=== PATIENT | female | born 1950 | race American Indian/Alaskan Native ===

== ENCOUNTER 2017-08-14 15:46 | Inpatient (IN) | payer OTHER, MEDICARE ==
[2017-08-14 15:47] VITALS: BMI 36.6
--- NOTE | 2017-08-14 17:23 | C.PDOC ---
History Of Present Illness LIMITED DUE TO CLIN COND REFERRED BY DR BIRD FOR EVAL. NEW ONSET AMS, POSSIBLE ONSET 2-3 WEEKS AGO. PER DAUGHTER, PT CALLED OUT FROM [employer], HAS NOT BEEN MOVING CAR ON STREET AND ACCUMULATING PARKING TICKETS, +MEMORY LOSS. "SEEMS OUT OF IT". DAUGHTER STATES SAW COCAINE ARTIFACTS IN PT'S HOUSE, NO WITNESSED RECENT COCAINE USE X 6 DAYS. BASELINE AO3, FUNCTIONAL. ROS UTO EXAM NAD NONTOXIC HEENT ATRAUM LUNGS CT AB/L NO W/R/R CV RRR ABD NEG EXT ATRAUM NO EDEMA NEURO AO2, NO FOCAL MOTOR DEF PSYCH CALM COOPERATIVE NO ACUTE PSYCHOSIS, INTOX SKIN WARM DRY REMAINDER NEG Time Seen by Provider: 08/14/17 17:12 Chief Complaint (Nursing): Altered Mental Status History/Exam Limitations: Clinical Condition Past Medical History Reviewed: Historical Data, Nursing Documentation, Vital Signs Vital Signs: Last Vital Signs Temp 97.8 F 08/14/17 16:03 Pulse 56 L 08/14/17 16:03 Resp 18 08/14/17 16:03 BP 142/91 H 08/14/17 16:03 Pulse Ox 99 08/14/17 18:20 - Medical History PMH: Arthritis, Diabetes, HTN, TIA (2 yrs ago) Denies: Chronic Kidney Disease Surgical History: No Surg Hx - [facility] Procedures CATARAC PHACOEMULS/ASPIR (04/23/14) INSERT LENS AT CATAR EXT (04/23/14) Family History: States: No Known Family Hx, Unknown Family Hx - Social History Hx Tobacco Use: No Hx Alcohol Use: No Hx Substance Use: No - Immunization History Hx Tetanus Toxoid Vaccination: No Hx Influenza Vaccination: No Hx Pneumococcal Vaccination: No Review Of Systems Review Of Systems: ROS cannot be obtained secondary to pt's inabilty to answer questions. Physical Exam - Physical Exam Appears: Non-toxic, No Acute Distress Skin: Warm, Dry Head: Atraumatic Eye(s): bilateral: Normal Inspection Oral Mucosa: Moist Neck: Normal ROM, Supple Chest: Symmetrical Cardiovascular: Rhythm Regular Respiratory: Normal Breath Sounds, No Rales, No Rhonchi, No Wheezing Gastrointestinal/Abdominal: Normal Exam, Soft, No Tenderness Back: Normal Inspection Extremity: Normal ROM, No Pedal Edema, No Deformity Neurological/Psych: Other (Alert, oriented x 2. No focal defecits. Calm, cooperative, no acute psychosis or intoxication) ED Course And Treatment - Laboratory Results Result Diagrams: 08/14/17 17:44 08/14/17 17:44 ECG: Interpreted By Me ECG Rhythm: Sinus Rhythm ECG Interpretation: Normal Rate From EC O2 Sat by Pulse Oximetry: 99 (RA) Pulse Ox Interpretation: Normal Progress - Re-Evaluation Re-evaluation Note: 08/14/17 17:35 D/W DR Doug BARTON C/F PMD, AWARE OF ER FINDINGS WILL ADMIT. LABS, CT PENDING - Data Reviewed Data Reviewed: Lab, Diagnostic imaging, EKG, Old records - Critical Care Citical Care: Excluding Proc Time Critical Care Time: 90 minutes Disposition Counseled Patient/Family Regarding: Studies Performed, Diagnosis - Disposition Disposition: HOSPITALIZED Disposition Time: 18:43 Condition: STABLE Forms: [facility] (Estonian) - POA Present On Arrival: None - Clinical Impression Clinical Impression: Altered mental status, UTI (urinary tract infection) - Scribe Statement The provider has reviewed the documentation as recorded by the Scribe (Nicole Candelaria) Provider Attestation: All medical record entries made by the Scribe were at my direction and personally dictated by me. I have reviewed the chart and agree that the record accurately reflects my personal performance of the history, physical exam, medical decision making, and the department course for this patient. I have also personally directed, reviewed, and agree with the discharge instructions and disposition. Decision To Admit - Pt Status Changed To: Hospital Disposition Of: Inpatient - Admit Certification Admit to Inpatient:: After my assessment, the patient will require hospitalization for at least two midnights. This is because of the severity of symptoms shown, intensity of services needed, and/or the medical risk in this patient being treated as an outpatient. - InPatient: Physician Admission Certification:: SEE NOTE - . Bed Request Type: Regular Admitting Physician: Gregorio Barton Patient Diagnosis: Altered mental status, UTI (urinary tract infection)
--- NOTE | 2017-08-14 17:32 | RAD ---
PROCEDURE: CHEST RADIOGRAPH, 1 VIEW HISTORY: AMS COMPARISON: 05/13/2014. FINDINGS: LUNGS: The lungs are well inflated and clear. PLEURA: No pneumothorax or pleural fluid seen. CARDIOVASCULAR: Normal. OSSEOUS STRUCTURES: No significant abnormalities. VISUALIZED UPPER ABDOMEN: Normal. OTHER FINDINGS: None. IMPRESSION: No active pulmonary disease.
[2017-08-14 17:48] LABS: EOS # 0.1 K/uL (0.0-0.7); EOS % 1.5 % (0.0-4.0); HEMOGLOBIN 12.3 g/dL (11.0-16.0); LYMPH # 2.3 K/uL (1.0-4.3); LYMPH % 49.8 % (20.0-40.0); MEAN CELL VOLUME 82.4 fL (81.0-99.0); MEAN CORPUSCULAR HEMOGLOBIN 27.4 pg (27.0-31.0); MEAN CORPUSCULAR HGB CONC 33.3 g/dL (33.0-37.0); MEAN PLATELET VOLUME 9.3 fL (7.2-11.7); MONO # 0.4 K/uL (0.0-0.8); MONO % 8.4 % (0.0-10.0); NEUT # 1.8 K/uL (1.8-7.0); NEUT % 39.3 % (50.0-75.0); RBC 4.47 Mil/uL (3.80-5.20); WHITE BLOOD COUNT 4.7 K/uL (4.8-10.8)
[2017-08-14 17:51] LABS: VENOUS BLOOD GAS BASE EXCESS 0.9 mmol/L (0.0-2.0); VENOUS BLOOD GAS PCO2 64 mmHg (40-60); VENOUS BLOOD GAS PO2 21 mm/Hg (30-55); VENOUS BLOOD PH 7.27 (7.32-7.43)
[2017-08-14 18:02] LABS: ALBUMIN 4.1 g/dL (3.5-5.0); CALCIUM 10.1 mg/dl (8.6-10.4); GFR AFRICAN-AMERICAN 39; GFR NON-AFRICAN AMERICAN 32; HDL CHOLESTEROL 36 mg/dL (30-70)
[2017-08-14 18:07] LABS: INR 1.1; PROTHROMBIN TIME 11.5 SECONDS (9.7-12.2)
[2017-08-14 18:08] LABS: ALT/SGPT 21 U/L (9-52); AST/SGOT 20 U/L (14-36); BLOOD UREA NITROGEN 28 mg/dL (7-17)
[2017-08-14 18:13] LABS: CK-MB 0.24 ng/mL (0.0-3.38); LDL CHOLESTEROL 152 mg/dL (0-129)
[2017-08-14 18:14] LABS: SQUAMOUS EPITHIAL 6 /hpf (0-5); URINE BACTERIA FEW (<OCC); URINE BILIRUBIN NEGATIVE (NEGATIVE); URINE BLOOD 1+ (NEGATIVE); URINE CLARITY Hazy (Clear); URINE COLOR Yellow (YELLOW); URINE GLUCOSE (UA) NORMAL (Normal); URINE LEUKOCYTE ESTERASE 2+ Leu/uL (Negative); URINE PROTEIN 1+ mg/dL (NEGATIVE); URINE URIC ACID CRYSTALS OCC /hpf (<OCC)
[2017-08-14] MEDS ORDERED: cefTRIAXone IV 1 gm in Dextros 50 ML IV STA (18:16)
--- NOTE | 2017-08-14 18:34 | CT ---
PROCEDURE: CT HEAD WITHOUT CONTRAST. HISTORY: AMS COMPARISON: 05/13/2014 TECHNIQUE: Axial computed tomography images were obtained through the head/brain without intravenous contrast. Radiation dose: Total exam DLP = 773.90 mGy-cm. This CT exam was performed using one or more of the following dose reduction techniques: Automated exposure control, adjustment of the mA and/or kV according to patient size, and/or use of iterative reconstruction technique. FINDINGS: HEMORRHAGE: No intracranial hemorrhage. BRAIN: There are moderate chronic microangiopathic changes. There are old lacunar infarctions in the right posterior limb of internal capsule, right thalamus and left basal ganglia. There is no mass, mass effect or abnormal extra-axial fluid collection. VENTRICLES: There is moderate age-related global parenchymal volume loss and proportionate enlargement of the ventricles and cortical sulci. CALVARIUM: There is mild hyperostosis frontalis interna. Otherwise, the skull base and calvarium are normal. PARANASAL SINUSES: Predominantly clear. MASTOID AIR CELLS: Predominantly clear. OTHER FINDINGS: None. IMPRESSION: No acute intracranial abnormality. Moderate chronic microangiopathic changes and moderate age-related global parenchymal volume loss. Old lacunar infarctions in the right posterior limb of internal capsule, right thalamus and left basal ganglia.
[2017-08-14 18:35] LABS: BARBITURATES, UR NEGATIVE (NEGATIVE); BENZODIAZEPINES, UR NEGATIVE (NEGATIVE); OPIATES, UR NEGATIVE (NEGATIVE); PHENCYCLIDINE, UR NEGATIVE (NEGATIVE)
[2017-08-14] MEDS ORDERED: cefTRIAXone IV 1 gm in Dextros 50 ML IVPB ONE (18:50)
[2017-08-14 22:43] LABS: FREE T4 1.03 ng/dL (0.78-2.19)
--- NOTE | 2017-08-15 02:58 | HP ---
HISTORY OF PRESENT ILLNESS: This is a 66-year-old female who came to the emergency room. The patient has history of recent onset of altered mental status, possibly for the last 2 to 3 weeks. As per daughter, the patient called her many times. Also has not been moving car on the street and getting parking tickets. History of memory loss. The patient seems out of it. Daughter states she saw cocaine artifacts in patient's house. No witnessed recent cocaine use for the last 6 days. No history of fever, chills. REVIEW OF SYSTEMS: Cannot be obtained completely because of patient's mental condition. PAST HISTORY: History of arthritis, diabetes, hypertension, and TIA. No history of chronic renal failure. MEDICATIONS: Metformin. ALLERGIES: NO KNOWN ALLERGIES. FAMILY HISTORY: No known inherited disease. SOCIAL HISTORY: No alcohol or tobacco use. PHYSICAL EXAMINATION: GENERAL: This is a 66-year-old female, awake, comfortable, oriented x2. VITAL SIGNS: Normal. HEENT: Normal. JVP is flat. Carotids, no bruits. LUNGS: No rales, no wheezing. HEART: S1 and S2 normal. No gallop, no murmur. ABDOMEN: Soft, nontender. No organomegaly. TREATER: No focal neurological deficit. EXTREMITIES: No edema of the legs. NEURO: Altered mental status present. LABORATORY DATA: On admission, lab work showed white cell count 4.7, hemoglobin 12.3, potassium is 5.3, BUN 28, and creatinine 1.6. EKG is within normal limits. Chest x-ray is within normal limits. IMPRESSION: Altered mental status. Renal insufficiency. Rule out urinary tract infection. PLAN: The patient will be admitted to the floor. We will get neurological and infectious disease evaluation done. Gregorio Moulton MD
[2017-08-15] MEDS ORDERED: Sod Polystyrene Sulf 15 gm/60 ml Susp PO STA (11:33)
--- NOTE | 2017-08-15 13:19 | CP.PCM.PN ---
Subjective - Date & Time of Evaluation Date of Evaluation: 08/15/17 Time of Evaluation: 13:17 - Subjective Subjective: PT AWAKE . COMFORTABLE. BP HIGH. NO HEADACHE. DISCUSSED WITH DAUGHTER, PT APPEARS SLIGHTLY BETTER. HYPERKALEMIA. CRF. HTN DM. S/P LACUNAR INFARCTS. Objective - Vital Signs/Intake and Output Vital Signs (last 24 hours): Temp Pulse Resp BP Pulse Ox 97.9 F 50 L 20 172/92 H 100 08/15/17 07:35 08/15/17 07:35 08/15/17 07:35 08/15/17 07:35 08/15/17 07:35 Intake and Output: 08/15/17 08/15/17 06:59 18:59 Intake Total 100 Balance 100 - Medications Medications: Current Medications Amlodipine Besylate (Norvasc) 5 mg PO DAILY [facility] Last Admin: 08/15/17 11:28 Dose: Not Given Aspirin (Aspirin Chewable) 81 mg PO DAILY [facility] Last Admin: 08/15/17 10:47 Dose: 81 mg Losartan Potassium (Cozaar) 50 mg PO DAILY [facility] Last Admin: 08/15/17 11:47 Dose: 50 mg Metformin HCl (Glucophage) 500 mg PO BID [facility] Pneumococcal Polyvalent Vaccine (Pneumovax 23 Vaccine) 0.5 ml IM .ONCE ONE Stop: 08/17/17 14:01 - Labs Labs: 08/14/17 17:44 08/14/17 17:44 PT 11.5 SECONDS (9.7-12.2) 08/14/17 17:44 INR 1.1 08/14/17 17:44 APTT 35 SECONDS (21-34) H 08/14/17 17:44 - Constitutional Appears: No Acute Distress, Chronically Ill - Eye Exam Eye Exam: EOMI, Normal appearance, PERRL Pupil Exam: NORMAL ACCOMODATION, PERRL - ENT Exam ENT Exam: Mucous Membranes Moist, Normal Exam - Neck Exam Neck Exam: Full ROM, Normal Inspection. absent: Lymphadenopathy - Respiratory Exam Respiratory Exam: Clear to Ausculation Bilateral, NORMAL BREATHING PATTERN - Cardiovascular Exam Cardiovascular Exam: REGULAR RHYTHM, +S1, +S2. absent: Murmur - GI/Abdominal Exam GI & Abdominal Exam: Soft, Normal Bowel Sounds. absent: Tenderness - Extremities Exam Extremities Exam: Full ROM, Normal Capillary Refill, Normal Inspection. absent : Joint Swelling, Pedal Edema - Back Exam Back Exam: NORMAL INSPECTION - Neurological Exam Neurological Exam: Alert, Awake, CN II-XII Intact, Normal Gait, Oriented x3 Assessment and Plan - Assessment and Plan (Free Text) Assessment: ABOVE. Plan: NEEDS NEURO EVAL. ECHO. LABS.
--- NOTE | 2017-08-15 14:35 | CARD ---
APPROVED REPORT EKG Measurement Heart [id number] <Conclusion> Sinus bradycardia Otherwise normal ECG
--- NOTE | 2017-08-15 15:50 | CP.PCM.CON ---
History of Present Illness - History of Present Illness History of Present Illness: 66 yo female with hx HTN DM CVA CKD found altered at home with drug paraphanelia and cocaine hasnt worked in 3 weeks severely altered Now with possible new CVA and UTI r/o sepsis Review of Systems - Review of Systems All systems: reviewed and no additional remarkable complaints except - Constitutional Constitutional: As Per HPI - EENT Eyes: absent: As Per HPI, Blind Spots, Blurred Vision, Change in Vision, Decreased Night Vision, Diplopia, Discharge, Dry Eye, Exophthalmos, Floaters, Irritation, Itchy Eyes, Loss of Peripheral Vision, Pain, Photophobia, Requires Corrective Lenses, Sees Flashes, Spots in Vision, Tunnel Vision, Other Visual Disturbances, Loss of Vision, Other Ears: absent: As Per HPI, Decreased Hearing, Ear Discharge, Ear Pain, Tinnitus, Abnormal Hearing, Disequilibrium, Dizziness, Other Nose/Mouth/Throat: absent: As Per HPI, Epistaxis, Nasal Congestion, Nasal Discharge, Nasal Obstruction, Nasal Trauma, Nose Pain, Post Nasal Drip, Sinus Pain, Sinus Pressure, Bleeding Gums, Change in Voice, Dental Pain, Dry Mouth, Dysphagia, Halitosis, Hoarsness, Lip Swelling, Mouth Lesions, Mouth Pain, Odynophagia, Sore Throat, Throat Swelling, Tongue Swelling, Facial Pain, Neck Pain, Neck Mass, Other - Breasts Breasts: absent: As Per HPI, Change in Shape, Mass, Pain, Nipple Discharge, Nipple Inversion, Skin Changes, Swelling, Other - Cardiovascular Cardiovascular: As Per HPI - Respiratory Respiratory: absent: As Per HPI, Cough, Dyspnea, Hemoptysis, Dyspnea on Exertion , Wheezing, Snoring, Stridor, Pain on Inspiration, Chest Congestion, Excessive Mucous Production, Change in Mucous Color, Pain with Coughing, Other - Gastrointestinal Gastrointestinal: absent: As Per HPI, Abdominal Pain, Belching, Bloating, Change in Bowel Habits, Change in Stool Character, Coffee Ground Emesis, Constipation, Cramping, Diarrhea, Dyspepsia, Dysphagia, Early Satiety, Excessive Flatus, Fecal Incontinence, Heartburn, Hematemesis, Hematochezia, Loose Stools, Melena, Nausea, Odynophagia, Temesmus, Vomiting, Other - Genitourinary Genitourinary: absent: As Per HPI, Change in Urinary Stream, Difficulty Urinating, Dysuria, Flank Pain, Hematuria, Pyuria, Nocturia, Urinary Incontinence, Urinary Frequency, Urinary Hesitance, Urinary Urgency, Voiding Freq/Small Amts, Freq UTI, Hx Renal/Bladder Calculi, Hx /Renal Surgery, Bladder Distension, Other - Reproductive: Female Reproductive:Female: absent: As Per HPI, Amenorrhea, Amenorrhea/ Control, Currently Menstual, Cycle <21 Days, Cycle >35 Days, Cycle Variable, Menses 1-7 Days, Menses >/= 8 Days, Menses Variable, Cycle > 4 Weeks Between, No Menses for 6 Months, Heavy Menses, Light Menses, Normal Menses, Spotting Between Cycles , S/P Hysterectomy, Menopausal, Post Menopausal, Premenarche, Abnormal Vaginal Bleeding, Dysmenorrhea, Dyspareunia, Genital Lesions, Genital Pruritis, Pelvic Pain, Prolapse Symptoms, Sexual Dysfunction, Vaginal Discharge, Vaginal Dryness , Vaginal Odor, Vaginal Pruritis, Other - Menstruation Menstruation: absent: As Per HPI, Amenorrhea, Amenorrhea/ Control, Currently Menstual, Cycle <21 Days, Cycle >35 Days, Cycle Variable, Menses 1-7 Days, Menses >/= 8 Days, Menses Variable, Cycle > 4 Weeks Between, No Menses for 6 Months, Heavy Menses, Light Menses, Normal Menses, Spotting Between Cycles , S/P Hysterectomy, Menopausal, Post Menopausal, Premenarche, Abnormal Vaginal Bleeding, Dysmenorrhea, Other - Musculoskeletal Musculoskeletal: absent: As Per HPI, Abnormal Gait, Arthralgias, Atrophy, Back Pain, Deformity, Joint Swelling, Limited Range of Motion, Loss of Height, Muscle Cramps, Muscle Weakness, Myalgias, Neck Pain, Numbness, Radiating Pain into Limb, Stiffness, Tingling, Other - Integumentary Integumentary: absent: As Per HPI, Acne, Alopecia, Bleeding Lesions, Change in Hair, Change in Nails, Change in Pigmentation, Changing Lesions, Dry Skin, Erythema, Furuncle, Hirsutism, Lesions, New Lesions, Non-Healing Lesions, Photosensitivity, Pruritus, Rash, Skin Pain, Skin Ulcer, Sores, Striae, Swelling , Unusual Bruising, Wounds, Jaundice, Other - Neurological Neurological: As Per HPI - Psychiatric Psychiatric: absent: As Per HPI, Abnormal Sleep Pattern, Anhedonia, Anxiety, Auditory Hallucinations, Behavioral Changes, Change in Appetite, Change in Libido, Confusion, Depression, Difficulty Concentrating, Hallucinations, Homicidal Ideation, Hopelessness, Irritability, Memory Loss, Mood Swings, Panic Attacks, Paranoia, Suicidal Ideation, Visual Hallucinations, Tactile Hallucinations, Other - Endocrine Endocrine: absent: As Per HPI, Change in Body Appearance, Change in Libido, Cold Intolorance, Deepening of Voice, Excessive Sweating, Fatigue, Flushing, Heat Intolorance, Increase in Ring/Shoe/Hat Size, Palpitations, Polydipsia, Polyphagia, Polyuria, Other - Hematologic/Lymphatic Hematologic: absent: As Per HPI, Easy Bleeding, Easy Bruising, Lymphadenopathy, Other Past Patient History - Past Medical History & Family History Past Medical History?: Yes - Past Social History Smoking Status: Never Smoked - CARDIAC Hx Cardiac Disorders: Yes Hx Hypertension: Yes - PULMONARY Hx Respiratory Disorders: No - NEUROLOGICAL Hx Neurological Disorder: Yes Hx Transient Ischemic Attacks (TIA): Yes (2 yrs ago) - HEENT Hx HEENT Problems: Yes Hx Cataracts: Yes - RENAL Hx Chronic Kidney Disease: No - ENDOCRINE/METABOLIC Hx Endocrine Disorders: Yes Hx Diabetes Mellitus Type 2: Yes - HEMATOLOGICAL/ONCOLOGICAL Hx Blood Disorders: No - INTEGUMENTARY Hx Dermatological Problems: No - MUSCULOSKELETAL/RHEUMATOLOGICAL Hx Musculoskeletal Disorders: Yes Hx Arthritis: Yes Hx Falls: No - GASTROINTESTINAL Hx Gastrointestinal Disorders: No - GENITOURINARY/GYNECOLOGICAL Hx Genitourinary Disorders: No - PSYCHIATRIC Hx Psychophysiologic Disorder: No Hx Substance Use: No - SURGICAL HISTORY Hx Surgeries: Yes Hx Eye Surgery: Yes Hx Hysterectomy: Yes Hx Joint Replacement: Yes (RIGHT KNEE) - ANESTHESIA Hx Anesthesia: Yes Hx Anesthesia Reactions: No Hx Malignant Hyperthermia: No Meds Allergies/Adverse Reactions: Allergies Allergy/AdvReac Type Severity Reaction Status Date / Time No Known Allergies Allergy Verified 03/03/14 09:20 - Medications Medications: Current Medications Amlodipine Besylate (Norvasc) 5 mg PO DAILY [facility] Last Admin: 08/15/17 11:28 Dose: Not Given Aspirin (Aspirin Chewable) 81 mg PO DAILY [facility] Last Admin: 08/15/17 10:47 Dose: 81 mg Losartan Potassium (Cozaar) 50 mg PO DAILY [facility] Last Admin: 08/15/17 11:47 Dose: 50 mg Metformin HCl (Glucophage) 500 mg PO BID [facility] Pneumococcal Polyvalent Vaccine (Pneumovax 23 Vaccine) 0.5 ml IM .ONCE ONE Stop: 08/17/17 14:01 Physical Exam - Constitutional Appears: No Acute Distress, Chronically Ill - Head Exam Head Exam: ATRAUMATIC, NORMOCEPHALIC - Eye Exam Eye Exam: absent: Scleral icterus Pupil Exam: NORMAL ACCOMODATION - ENT Exam ENT Exam: Mucous Membranes Dry, Normal External Ear Exam - Neck Exam Neck exam: Positive for: Lymphadenopathy - Respiratory Exam Respiratory Exam: Decreased Breath Sounds - Cardiovascular Exam Cardiovascular Exam: REGULAR RHYTHM - GI/Abdominal Exam GI & Abdominal Exam: Diminished Bowel Sounds, Soft. absent: Tenderness - Rectal Exam Rectal Exam: Deferred - Exam Exam: NORMAL INSPECTION - Extremities Exam Extremities exam: Positive for: pedal pulses present. Negative for: calf tenderness, pedal edema, tenderness - Back Exam Back exam: absent: CVA tenderness (L), CVA tenderness (R) - Neurological Exam Neurological exam: Alert, CN II-XII Intact, Motor Sensory Deficit, Oriented x3 - Psychiatric Exam Psychiatric exam: Depressed - Skin Skin Exam: Dry Results - Vital Signs Recent Vital Signs: Last Vital Signs Temp 97.9 F 08/15/17 07:35 Pulse 50 L 08/15/17 07:35 Resp 20 08/15/17 07:35 BP 172/92 H 08/15/17 07:35 Pulse Ox 100 08/15/17 07:35 - Labs Result Diagrams: 08/14/17 17:44 08/14/17 17:44 Labs: Laboratory Results - last 24 hr 08/14/17 08/14/17 08/14/17 16:06 17:44 17:44 WBC 4.7 L D RBC 4.47 Hgb 12.3 Hct 36.8 MCV 82.4 MCH 27.4 MCHC 33.3 RDW 14.0 Plt Count 227 MPV 9.3 Neut % (Auto) 39.3 L Lymph % (Auto) 49.8 H [place] % (Auto) 8.4 Eos % (Auto) 1.5 Baso % (Auto) 1.0 Neut # (Auto) 1.8 Lymph # (Auto) 2.3 [place] # (Auto) 0.4 Eos # (Auto) 0.1 Baso # (Auto) 0.0 PT 11.5 INR 1.1 APTT 35 H pO2 VBG pH VBG pCO2 VBG HCO3 VBG Total CO2 VBG O2 Sat (Calc) VBG Base Excess VBG Potassium Glucose Lactate FiO2 Sodium Potassium Chloride Carbon Dioxide Anion Gap BUN Creatinine Est GFR ( Amer) Est GFR (Non-Af Amer) POC Glucose (mg/dL) 118 H Random Glucose Hemoglobin A1c Calcium Total Bilirubin AST ALT Alkaline Phosphatase Total Creatine Kinase CK-MB (Mass) Troponin I Total Protein Albumin Globulin Albumin/Globulin Ratio Triglycerides Cholesterol LDL Cholesterol Direct HDL Cholesterol Free T4 TSH 3rd Generation Venous Blood Potassium Urine Color Urine Clarity Urine pH Ur Specific Dodson Urine Protein Urine Glucose (UA) Urine Ketones Urine Blood Urine Nitrate Urine Bilirubin Urine Urobilinogen Ur Leukocyte Esterase Urine WBC (Auto) Urine RBC (Auto) Ur Squamous Epith Cells Uric Acid Crystals Urine Bacteria Hyaline Casts Urine Opiates Screen Urine Methadone Screen Ur Barbiturates Screen Ur Phencyclidine Scrn Ur Amphetamines Screen U Benzodiazepines Scrn U Oth Cocaine Metabols U Cannabinoids Screen 08/14/17 08/14/17 08/14/17 17:44 17:44 17:45 WBC RBC Hgb Hct MCV MCH MCHC RDW Plt Count MPV Neut % (Auto) Lymph % (Auto) [place] % (Auto) Eos % (Auto) Baso % (Auto) Neut # (Auto) Lymph # (Auto) [place] # (Auto) Eos # (Auto) Baso # (Auto) PT INR APTT pO2 21 L VBG pH 7.27 L VBG pCO2 64 H VBG HCO3 23.7 VBG Total CO2 31.4 H VBG O2 Sat (Calc) 30.8 L VBG Base Excess 0.9 VBG Potassium 5.4 H Glucose 87 Lactate 3.4 H FiO2 21.0 Sodium 146 145.0 Potassium 5.3 H Chloride 107 112.0 H Carbon Dioxide 28 Anion Gap 17 BUN 28 H Creatinine 1.6 H Est GFR ( Amer) 39 Est GFR (Non-Af Amer) 32 POC Glucose (mg/dL) Random Glucose 93 Hemoglobin A1c 5.6 Calcium 10.1 Total Bilirubin 0.7 AST 20 ALT 21 Alkaline Phosphatase 47 Total Creatine Kinase 77 CK-MB (Mass) 0.24 Troponin I < 0.0120 Total Protein 8.3 Albumin 4.1 Globulin 4.2 H Albumin/Globulin Ratio 1.0 Triglycerides 187 H Cholesterol 230 H LDL Cholesterol Direct 152 H HDL Cholesterol 36 Free T4 TSH 3rd Generation Venous Blood Potassium 5.4 H Urine Color Urine Clarity Urine pH Ur Specific Dodson Urine Protein Urine Glucose (UA) Urine Ketones Urine Blood Urine Nitrate Urine Bilirubin Urine Urobilinogen Ur Leukocyte Esterase Urine WBC (Auto) Urine RBC (Auto) Ur Squamous Epith Cells Uric Acid Crystals Urine Bacteria Hyaline Casts Urine Opiates Screen Urine Methadone Screen Ur Barbiturates Screen Ur Phencyclidine Scrn Ur Amphetamines Screen U Benzodiazepines Scrn U Oth Cocaine Metabols U Cannabinoids Screen 08/14/17 08/14/17 08/14/17 18:02 18:02 22:12 WBC RBC Hgb Hct MCV MCH MCHC RDW Plt Count MPV Neut % (Auto) Lymph % (Auto) [place] % (Auto) Eos % (Auto) Baso % (Auto) Neut # (Auto) Lymph # (Auto) [place] # (Auto) Eos # (Auto) Baso # (Auto) PT INR APTT pO2 VBG pH VBG pCO2 VBG HCO3 VBG Total CO2 VBG O2 Sat (Calc) VBG Base Excess VBG Potassium Glucose Lactate FiO2 Sodium Potassium Chloride Carbon Dioxide Anion Gap BUN Creatinine Est GFR ( Amer) Est GFR (Non-Af Amer) POC Glucose (mg/dL) Random Glucose Hemoglobin A1c Calcium Total Bilirubin AST ALT Alkaline Phosphatase Total Creatine Kinase CK-MB (Mass) Troponin I Total Protein Albumin Globulin Albumin/Globulin Ratio Triglycerides Cholesterol LDL Cholesterol Direct HDL Cholesterol Free T4 1.03 TSH 3rd Generation 1.48 Venous Blood Potassium Urine Color Yellow Urine Clarity Hazy Urine pH 5.0 Ur Specific Dodson 1.027 Urine Protein 1+ H Urine Glucose (UA) Normal Urine Ketones Negative Urine Blood 1+ H Urine Nitrate Negative Urine Bilirubin Negative Urine Urobilinogen 2.0 H Ur Leukocyte Esterase 2+ H Urine WBC (Auto) 17 H Urine RBC (Auto) 13 H Ur Squamous Epith Cells 6 H Uric Acid Crystals Occ H Urine Bacteria Few H Hyaline Casts 6-10 H Urine Opiates Screen Negative Urine Methadone Screen Negative Ur Barbiturates Screen Negative Ur Phencyclidine Scrn Negative Ur Amphetamines Screen Negative U Benzodiazepines Scrn Negative U Oth Cocaine Metabols Positive H U Cannabinoids Screen Negative 08/15/17 08/15/17 06:11 11:26 WBC RBC Hgb Hct MCV MCH MCHC RDW Plt Count MPV Neut % (Auto) Lymph % (Auto) [place] % (Auto) Eos % (Auto) Baso % (Auto) Neut # (Auto) Lymph # (Auto) [place] # (Auto) Eos # (Auto) Baso # (Auto) PT INR APTT pO2 VBG pH VBG pCO2 VBG HCO3 VBG Total CO2 VBG O2 Sat (Calc) VBG Base Excess VBG Potassium Glucose Lactate FiO2 Sodium Potassium Chloride Carbon Dioxide Anion Gap BUN Creatinine Est GFR ( Amer) Est GFR (Non-Af Amer) POC Glucose (mg/dL) 104 104 Random Glucose Hemoglobin A1c Calcium Total Bilirubin AST ALT Alkaline Phosphatase Total Creatine Kinase CK-MB (Mass) Troponin I Total Protein Albumin Globulin Albumin/Globulin Ratio Triglycerides Cholesterol LDL Cholesterol Direct HDL Cholesterol Free T4 TSH 3rd Generation Venous Blood Potassium Urine Color Urine Clarity Urine pH Ur Specific Dodson Urine Protein Urine Glucose (UA) Urine Ketones Urine Blood Urine Nitrate Urine Bilirubin Urine Urobilinogen Ur Leukocyte Esterase Urine WBC (Auto) Urine RBC (Auto) Ur Squamous Epith Cells Uric Acid Crystals Urine Bacteria Hyaline Casts Urine Opiates Screen Urine Methadone Screen Ur Barbiturates Screen Ur Phencyclidine Scrn Ur Amphetamines Screen U Benzodiazepines Scrn U Oth Cocaine Metabols U Cannabinoids Screen Assessment & Plan (1) Altered mental status Status: Acute (2) UTI (urinary tract infection) Status: Acute (3) Acute kidney injury Status: Acute (4) Diabetes Status: Acute (5) Headache Status: Acute (6) Hypertensive emergency Status: Acute (7) Leukocytosis Status: Acute - Assessment and Plan (Free Text) Assessment: consider psych evaal will need [facility]
--- NOTE | 2017-08-15 17:25 | CP.PCM.HP ---
Past Patient History - Past Medical History & Family History Past Medical History?: Yes - Past Social History Smoking Status: Never Smoked - CARDIAC Hx Cardiac Disorders: Yes Hx Hypertension: Yes - PULMONARY Hx Respiratory Disorders: No - NEUROLOGICAL Hx Neurological Disorder: Yes Hx Transient Ischemic Attacks (TIA): Yes (2 yrs ago) - HEENT Hx HEENT Problems: Yes Hx Cataracts: Yes - RENAL Hx Chronic Kidney Disease: No - ENDOCRINE/METABOLIC Hx Endocrine Disorders: Yes Hx Diabetes Mellitus Type 2: Yes - HEMATOLOGICAL/ONCOLOGICAL Hx Blood Disorders: No - INTEGUMENTARY Hx Dermatological Problems: No - MUSCULOSKELETAL/RHEUMATOLOGICAL Hx Musculoskeletal Disorders: Yes Hx Arthritis: Yes Hx Falls: No - GASTROINTESTINAL Hx Gastrointestinal Disorders: No - GENITOURINARY/GYNECOLOGICAL Hx Genitourinary Disorders: No - PSYCHIATRIC Hx Psychophysiologic Disorder: No Hx Substance Use: No - SURGICAL HISTORY Hx Surgeries: Yes Hx Eye Surgery: Yes Hx Hysterectomy: Yes Hx Joint Replacement: Yes (RIGHT KNEE) - ANESTHESIA Hx Anesthesia: Yes Hx Anesthesia Reactions: No Hx Malignant Hyperthermia: No Meds Allergies/Adverse Reactions: Allergies Allergy/AdvReac Type Severity Reaction Status Date / Time No Known Allergies Allergy Verified 03/03/14 09:20 Physical Exam - Constitutional Appears: Well - Head Exam Head Exam: ATRAUMATIC, NORMAL INSPECTION, NORMOCEPHALIC - Eye Exam Eye Exam: EOMI, Normal appearance, PERRL Pupil Exam: NORMAL ACCOMODATION, PERRL - ENT Exam ENT Exam: Mucous Membranes Moist, Normal Exam - Neck Exam Neck exam: Positive for: Normal Inspection - Respiratory Exam Respiratory Exam: Decreased Breath Sounds - Cardiovascular Exam Cardiovascular Exam: REGULAR RHYTHM, +S1, +S2 - GI/Abdominal Exam GI & Abdominal Exam: Diminished Bowel Sounds, Soft - Rectal Exam Rectal Exam: Deferred Results - Vital Signs Recent Vital Signs: Last Vital Signs Temp 97.9 F 08/15/17 15:45 Pulse 56 L 08/15/17 15:45 Resp 20 08/15/17 15:45 BP 155/91 H 08/15/17 15:45 Pulse Ox 97 08/15/17 15:45 - Labs Result Diagrams: 08/14/17 17:44 08/14/17 17:44 Labs: Laboratory Results - last 24 hr 08/14/17 08/14/17 08/14/17 17:44 17:44 17:44 WBC 4.7 L D RBC 4.47 Hgb 12.3 Hct 36.8 MCV 82.4 MCH 27.4 MCHC 33.3 RDW 14.0 Plt Count 227 MPV 9.3 Neut % (Auto) 39.3 L Lymph % (Auto) 49.8 H [place] % (Auto) 8.4 Eos % (Auto) 1.5 Baso % (Auto) 1.0 Neut # (Auto) 1.8 Lymph # (Auto) 2.3 [place] # (Auto) 0.4 Eos # (Auto) 0.1 Baso # (Auto) 0.0 PT 11.5 INR 1.1 APTT 35 H pO2 VBG pH VBG pCO2 VBG HCO3 VBG Total CO2 VBG O2 Sat (Calc) VBG Base Excess VBG Potassium Glucose Lactate FiO2 Sodium 146 Potassium 5.3 H Chloride 107 Carbon Dioxide 28 Anion Gap 17 BUN 28 H Creatinine 1.6 H Est GFR ( Amer) 39 Est GFR (Non-Af Amer) 32 POC Glucose (mg/dL) Random Glucose 93 Hemoglobin A1c Calcium 10.1 Total Bilirubin 0.7 AST 20 ALT 21 Alkaline Phosphatase 47 Total Creatine Kinase 77 CK-MB (Mass) 0.24 Troponin I < 0.0120 Total Protein 8.3 Albumin 4.1 Globulin 4.2 H Albumin/Globulin Ratio 1.0 Triglycerides 187 H Cholesterol 230 H LDL Cholesterol Direct 152 H HDL Cholesterol 36 Free T4 TSH 3rd Generation Venous Blood Potassium Urine Color Urine Clarity Urine pH Ur Specific [place] Urine Protein Urine Glucose (UA) Urine Ketones Urine Blood Urine Nitrate Urine Bilirubin Urine Urobilinogen Ur Leukocyte Esterase Urine WBC (Auto) Urine RBC (Auto) Ur Squamous Epith Cells Uric Acid Crystals Urine Bacteria Hyaline Casts Urine Opiates Screen Urine Methadone Screen Ur Barbiturates Screen Ur Phencyclidine Scrn Ur Amphetamines Screen U Benzodiazepines Scrn U Oth Cocaine Metabols U Cannabinoids Screen 08/14/17 08/14/17 08/14/17 17:44 17:45 18:02 WBC RBC Hgb Hct MCV MCH MCHC RDW Plt Count MPV Neut % (Auto) Lymph % (Auto) [place] % (Auto) Eos % (Auto) Baso % (Auto) Neut # (Auto) Lymph # (Auto) [place] # (Auto) Eos # (Auto) Baso # (Auto) PT INR APTT pO2 21 L VBG pH 7.27 L VBG pCO2 64 H VBG HCO3 23.7 VBG Total CO2 31.4 H VBG O2 Sat (Calc) 30.8 L VBG Base Excess 0.9 VBG Potassium 5.4 H Glucose 87 Lactate 3.4 H FiO2 21.0 Sodium 145.0 Potassium Chloride 112.0 H Carbon Dioxide Anion Gap BUN Creatinine Est GFR ( Amer) Est GFR (Non-Af Amer) POC Glucose (mg/dL) Random Glucose Hemoglobin A1c 5.6 Calcium Total Bilirubin AST ALT Alkaline Phosphatase Total Creatine Kinase CK-MB (Mass) Troponin I Total Protein Albumin Globulin Albumin/Globulin Ratio Triglycerides Cholesterol LDL Cholesterol Direct HDL Cholesterol Free T4 TSH 3rd Generation Venous Blood Potassium 5.4 H Urine Color Urine Clarity Urine pH Ur Specific [place] Urine Protein Urine Glucose (UA) Urine Ketones Urine Blood Urine Nitrate Urine Bilirubin Urine Urobilinogen Ur Leukocyte Esterase Urine WBC (Auto) Urine RBC (Auto) Ur Squamous Epith Cells Uric Acid Crystals Urine Bacteria Hyaline Casts Urine Opiates Screen Negative Urine Methadone Screen Negative Ur Barbiturates Screen Negative Ur Phencyclidine Scrn Negative Ur Amphetamines Screen Negative U Benzodiazepines Scrn Negative U Oth Cocaine Metabols Positive H U Cannabinoids Screen Negative 08/14/17 08/14/17 08/15/17 18:02 22:12 06:11 WBC RBC Hgb Hct MCV MCH MCHC RDW Plt Count MPV Neut % (Auto) Lymph % (Auto) [place] % (Auto) Eos % (Auto) Baso % (Auto) Neut # (Auto) Lymph # (Auto) [place] # (Auto) Eos # (Auto) Baso # (Auto) PT INR APTT pO2 VBG pH VBG pCO2 VBG HCO3 VBG Total CO2 VBG O2 Sat (Calc) VBG Base Excess VBG Potassium Glucose Lactate FiO2 Sodium Potassium Chloride Carbon Dioxide Anion Gap BUN Creatinine Est GFR ( Amer) Est GFR (Non-Af Amer) POC Glucose (mg/dL) 104 Random Glucose Hemoglobin A1c Calcium Total Bilirubin AST ALT Alkaline Phosphatase Total Creatine Kinase CK-MB (Mass) Troponin I Total Protein Albumin Globulin Albumin/Globulin Ratio Triglycerides Cholesterol LDL Cholesterol Direct HDL Cholesterol Free T4 1.03 TSH 3rd Generation 1.48 Venous Blood Potassium Urine Color Yellow Urine Clarity Hazy Urine pH 5.0 Ur Specific [place] 1.027 Urine Protein 1+ H Urine Glucose (UA) Normal Urine Ketones Negative Urine Blood 1+ H Urine Nitrate Negative Urine Bilirubin Negative Urine Urobilinogen 2.0 H Ur Leukocyte Esterase 2+ H Urine WBC (Auto) 17 H Urine RBC (Auto) 13 H Ur Squamous Epith Cells 6 H Uric Acid Crystals Occ H Urine Bacteria Few H Hyaline Casts 6-10 H Urine Opiates Screen Urine Methadone Screen Ur Barbiturates Screen Ur Phencyclidine Scrn Ur Amphetamines Screen U Benzodiazepines Scrn U Oth Cocaine Metabols U Cannabinoids Screen 08/15/17 08/15/17 11:26 16:25 WBC RBC Hgb Hct MCV MCH MCHC RDW Plt Count MPV Neut % (Auto) Lymph % (Auto) [place] % (Auto) Eos % (Auto) Baso % (Auto) Neut # (Auto) Lymph # (Auto) [place] # (Auto) Eos # (Auto) Baso # (Auto) PT INR APTT pO2 VBG pH VBG pCO2 VBG HCO3 VBG Total CO2 VBG O2 Sat (Calc) VBG Base Excess VBG Potassium Glucose Lactate FiO2 Sodium Potassium Chloride Carbon Dioxide Anion Gap BUN Creatinine Est GFR ( Amer) Est GFR (Non-Af Amer) POC Glucose (mg/dL) 104 109 Random Glucose Hemoglobin A1c Calcium Total Bilirubin AST ALT Alkaline Phosphatase Total Creatine Kinase CK-MB (Mass) Troponin I Total Protein Albumin Globulin Albumin/Globulin Ratio Triglycerides Cholesterol LDL Cholesterol Direct HDL Cholesterol Free T4 TSH 3rd Generation Venous Blood Potassium Urine Color Urine Clarity Urine pH Ur Specific [place] Urine Protein Urine Glucose (UA) Urine Ketones Urine Blood Urine Nitrate Urine Bilirubin Urine Urobilinogen Ur Leukocyte Esterase Urine WBC (Auto) Urine RBC (Auto) Ur Squamous Epith Cells Uric Acid Crystals Urine Bacteria Hyaline Casts Urine Opiates Screen Urine Methadone Screen Ur Barbiturates Screen Ur Phencyclidine Scrn Ur Amphetamines Screen U Benzodiazepines Scrn U Oth Cocaine Metabols U Cannabinoids Screen
[2017-08-15 20:38] LABS: CALCIUM 9.6 mg/dl (8.6-10.4)
[2017-08-15 20:45] LABS: SQUAMOUS EPITHIAL 5 /hpf (0-5); URINE BILIRUBIN NEGATIVE (NEGATIVE); URINE BLOOD 1+ (NEGATIVE); URINE CLARITY Clear (Clear); URINE COLOR Yellow (YELLOW); URINE GLUCOSE (UA) NORMAL (Normal); URINE LEUKOCYTE ESTERASE TRACE Leu/uL (Negative); URINE PROTEIN NEGATIVE (NEGATIVE); URINE UROBILINOGEN NORMAL mg/dL (0.2-1.0)
[2017-08-15 21:02] LABS: CREATININE, RANDOM URINE 112.2 mg/dL
--- NOTE | 2017-08-16 04:16 | CON ---
DATE: NEUROLOGIC CONSULTATION REASON FOR CONSULTATION: Altered mental status. HISTORY OF PRESENT ILLNESS: The patient is 66-year-old female who has been asked for evaluation of altered mental status. The patient was brought to the emergency room with altered mental status. Apparently, the patient was altered over the last two to three weeks. According to the daughter, the patient called her several times. The patient was also not moving her car on the street and getting parking tickets. The patient apparently had history of memory loss. The patient now said that she does not know what happened and why she was not able to the move car. She denies any fever or chills. Denies any other complaints. REVIEW OF SYSTEMS: Denied any headaches, dizziness, chest pain, shortness of breath, abdominal pain, constipation, diarrhea, dysuria, cough, sputum production, focal weakness in the arms or legs. PAST MEDICAL HISTORY: Includes arthritis, diabetes mellitus, hypertension, and TIA. MEDICATIONS: Her medications at home included metformin, Diovan, clonidine, Coreg, aspirin, and amlodipine. ALLERGIES: NO KNOWN DRUG ALLERGIES. SOCIAL HISTORY: Denies any smoking, use of alcohol, or illicit drugs. FAMILY HISTORY: Reviewed and noncontributory to the case. PHYSICAL EXAMINATION: GENERAL: The patient is an elderly female lying in the bed, in no acute distress. VITAL SIGNS: Her blood pressure is 155/91, heart rate is 56 per minute, breathing at the rate of 16 per minute, temperature 97.9 degrees Fahrenheit. HEENT: Normocephalic and atraumatic. NECK: Supple. There are no carotid bruits. LUNGS: Clear. CVS: S1, S2 audible. No murmurs. ABDOMEN: Soft. Nontender with bowel sounds present. NEUROLOGIC: Mental status: The patient is awake and alert. She knows she is in [facility]. Year is 1986. Month July. President is Michael. She follows simple commands. Cranial nerve examination: Pupils 3 mm, bilaterally reactive to light. Visual horn are full. Extraocular movements are intact. There is no facial asymmetry. Palate is upgoing bilaterally. Tongue is midline. Motor examination: Tone is normal. Power is 5/5 bilaterally in all extremities. Reflexes are 1+ and symmetrical. Plantar is downgoing bilaterally. Cerebellar examination shows no dysmetria. Gait is deferred at the moment. LABORATORY DATA: Reviewed. Shows WBC of 4.7, hemoglobin 12.3, hematocrit 36.8, platelets of 227. Sodium 146, potassium 5.3, chloride 107, carbon dioxide 128. BUN 28, creatinine 1.6, and glucose of 93. Her T4 and TSH are normal. Urine toxicology screen is positive for cocaine. IMPRESSION: 1. Altered mental status, possibly secondary to the use of cocaine as it is present in the patient's toxicology screen. 2. Rule out any other central etiology. 3. History of questionable memory loss. RECOMMENDATIONS: 1. The patient had MRI of the brain without contrast. 2. The patient also to have an electroencephalogram. 3. The patient to have vitamin B12 levels done. 4. The patient to be continued on IV antibiotics for possible urinary tract infection as possible for the patient's symptoms. 5. Please continue the treatment and supportive care. Thank you for the opportunity to participate in the care of this patient. Singh Parra MD
[2017-08-16 08:37] LABS: BASO % 0.4 % (0.0-2.0); EOS # 0.1 K/uL (0.0-0.7); EOS % 1.7 % (0.0-4.0); HEMOGLOBIN 11.5 g/dL (11.0-16.0); LYMPH # 2.5 K/uL (1.0-4.3); LYMPH % 53.2 % (20.0-40.0); MEAN CELL VOLUME 81.8 fL (81.0-99.0); MEAN CORPUSCULAR HEMOGLOBIN 27.8 pg (27.0-31.0); MEAN CORPUSCULAR HGB CONC 33.9 g/dL (33.0-37.0); MEAN PLATELET VOLUME 9.5 fL (7.2-11.7); MONO # 0.3 K/uL (0.0-0.8); MONO % 7.4 % (0.0-10.0); NEUT # 1.7 K/uL (1.8-7.0); NEUT % 37.3 % (50.0-75.0); NRBC % 0.1 % (0.0-2.0); RBC 4.14 Mil/uL (3.80-5.20); RED CELL DISTRIBUTION WIDTH 13.4 % (11.5-14.5); WHITE BLOOD COUNT 4.7 K/uL (4.8-10.8)
[2017-08-16 08:50] LABS: CALCIUM 8.9 mg/dl (8.6-10.4)
[2017-08-16 09:27] LABS: HEPATITIS A IGM NEGATIVE (NEGATIVE); HEPATITIS B CORE AB NEGATIVE (NEGATIVE)
[2017-08-16 09:39] LABS: HEPATITIS C ANTIBODY NEGATIVE (NEGATIVE)
[2017-08-16 10:44] LABS: HEPATITIS B SURFACE AG Negative (NEGATIVE)
--- NOTE | 2017-08-16 10:57 | CP.PCM.CON ---
History of Present Illness - History of Present Illness History of Present Illness: pt is seen and examined, full consult is dictated #[id number] Past Patient History - Past Medical History & Family History Past Medical History?: Yes - Past Social History Smoking Status: Never Smoked - CARDIAC Hx Cardiac Disorders: Yes Hx Hypertension: Yes - PULMONARY Hx Respiratory Disorders: No - NEUROLOGICAL Hx Neurological Disorder: Yes Hx Transient Ischemic Attacks (TIA): Yes (2 yrs ago) - HEENT Hx HEENT Problems: Yes Hx Cataracts: Yes - RENAL Hx Chronic Kidney Disease: No - ENDOCRINE/METABOLIC Hx Endocrine Disorders: Yes Hx Diabetes Mellitus Type 2: Yes - HEMATOLOGICAL/ONCOLOGICAL Hx Blood Disorders: No - INTEGUMENTARY Hx Dermatological Problems: No - MUSCULOSKELETAL/RHEUMATOLOGICAL Hx Musculoskeletal Disorders: Yes Hx Arthritis: Yes Hx Falls: No - GASTROINTESTINAL Hx Gastrointestinal Disorders: No - GENITOURINARY/GYNECOLOGICAL Hx Genitourinary Disorders: No - PSYCHIATRIC Hx Psychophysiologic Disorder: No Hx Substance Use: No - SURGICAL HISTORY Hx Surgeries: Yes Hx Eye Surgery: Yes Hx Hysterectomy: Yes Hx Joint Replacement: Yes (RIGHT KNEE) - ANESTHESIA Hx Anesthesia: Yes Hx Anesthesia Reactions: No Hx Malignant Hyperthermia: No Meds Allergies/Adverse Reactions: Allergies Allergy/AdvReac Type Severity Reaction Status Date / Time No Known Allergies Allergy Verified 03/03/14 09:20 - Medications Medications: Current Medications Amlodipine Besylate (Norvasc) 5 mg PO DAILY [facility] Last Admin: 08/16/17 10:09 Dose: 5 mg Aspirin (Aspirin Chewable) 81 mg PO DAILY [facility] Last Admin: 08/16/17 10:08 Dose: 81 mg Ceftriaxone Sodium 1 gm/ (Sodium Chloride) 100 mls @ 100 mls/hr IVPB DAILY [facility] PRN Reason: Protocol Last Admin: 08/16/17 10:12 Dose: 100 mls/hr Losartan Potassium (Cozaar) 50 mg PO DAILY [facility] Last Admin: 08/16/17 10:09 Dose: 50 mg Metformin HCl (Glucophage) 500 mg PO BID [facility] Last Admin: 08/16/17 10:09 Dose: 500 mg Pneumococcal Polyvalent Vaccine (Pneumovax 23 Vaccine) 0.5 ml IM .ONCE ONE Stop: 08/17/17 14:01 Results - Vital Signs Recent Vital Signs: Last Vital Signs Temp 98.0 F 08/16/17 07:40 Pulse 54 L 08/16/17 07:40 Resp 20 08/16/17 07:40 BP 157/79 H 08/16/17 07:40 Pulse Ox 99 08/16/17 07:40 - Labs Result Diagrams: 08/16/17 08:26 08/16/17 08:26 Labs: Laboratory Results - last 24 hr 08/15/17 08/15/17 08/15/17 11:26 16:25 19:52 WBC RBC Hgb Hct MCV MCH MCHC RDW Plt Count MPV Neut % (Auto) Lymph % (Auto) [place] % (Auto) Eos % (Auto) Baso % (Auto) Neut # (Auto) Lymph # (Auto) [place] # (Auto) Eos # (Auto) Baso # (Auto) Sodium 147 Potassium 3.5 L Chloride 105 Carbon Dioxide 30 Anion Gap 16 BUN 19 H Creatinine 1.4 H Est GFR ( Amer) 46 Est GFR (Non-Af Amer) 38 POC Glucose (mg/dL) 104 109 Random Glucose 103 Calcium 9.6 Magnesium Vitamin B12 Urine Color Urine Clarity Urine pH Ur Specific [place] Urine Protein Urine Glucose (UA) Urine Ketones Urine Blood Urine Nitrate Urine Bilirubin Urine Urobilinogen Ur Leukocyte Esterase Urine WBC (Auto) Urine RBC (Auto) Ur Squamous Epith Cells Urine Osmolality Ur Random Creatinine Ur Random Sodium Ur Random Potassium Hepatitis A IgM Ab Hep Bs Antigen Hep B Core IgM Ab Hepatitis C Antibody HIV 1&2 Antibody Screen 08/15/17 08/15/17 08/15/17 19:52 20:31 20:31 WBC RBC Hgb Hct MCV MCH MCHC RDW Plt Count MPV Neut % (Auto) Lymph % (Auto) [place] % (Auto) Eos % (Auto) Baso % (Auto) Neut # (Auto) Lymph # (Auto) [place] # (Auto) Eos # (Auto) Baso # (Auto) Sodium Potassium Chloride Carbon Dioxide Anion Gap BUN Creatinine Est GFR ( Amer) Est GFR (Non-Af Amer) POC Glucose (mg/dL) Random Glucose Calcium Magnesium Vitamin B12 307 Urine Color Urine Clarity Urine pH Ur Specific [place] Urine Protein Urine Glucose (UA) Urine Ketones Urine Blood Urine Nitrate Urine Bilirubin Urine Urobilinogen Ur Leukocyte Esterase Urine WBC (Auto) Urine RBC (Auto) Ur Squamous Epith Cells Urine Osmolality 698 Ur Random Creatinine 112.2 Ur Random Sodium 186 Ur Random Potassium 49.4 Hepatitis A IgM Ab Hep Bs Antigen Hep B Core IgM Ab Hepatitis C Antibody HIV 1&2 Antibody Screen 08/15/17 08/15/17 08/16/17 20:32 20:57 06:22 WBC RBC Hgb Hct MCV MCH MCHC RDW Plt Count MPV Neut % (Auto) Lymph % (Auto) [place] % (Auto) Eos % (Auto) Baso % (Auto) Neut # (Auto) Lymph # (Auto) [place] # (Auto) Eos # (Auto) Baso # (Auto) Sodium Potassium Chloride Carbon Dioxide Anion Gap BUN Creatinine Est GFR ( Amer) Est GFR (Non-Af Amer) POC Glucose (mg/dL) 93 103 Random Glucose Calcium Magnesium Vitamin B12 Urine Color Yellow Urine Clarity Clear Urine pH 6.0 Ur Specific [place] 1.017 Urine Protein Negative Urine Glucose (UA) Normal Urine Ketones Negative Urine Blood 1+ H Urine Nitrate Negative Urine Bilirubin Negative Urine Urobilinogen Normal Ur Leukocyte Esterase Trace Urine WBC (Auto) 6 H Urine RBC (Auto) 8 H Ur Squamous Epith Cells 5 Urine Osmolality Ur Random Creatinine Ur Random Sodium Ur Random Potassium Hepatitis A IgM Ab Hep Bs Antigen Hep B Core IgM Ab Hepatitis C Antibody HIV 1&2 Antibody Screen 08/16/17 08/16/17 08/16/17 08:26 08:26 08:26 WBC 4.7 L RBC 4.14 Hgb 11.5 Hct 33.9 L MCV 81.8 MCH 27.8 MCHC 33.9 RDW 13.4 Plt Count 206 MPV 9.5 Neut % (Auto) 37.3 L Lymph % (Auto) 53.2 H [place] % (Auto) 7.4 Eos % (Auto) 1.7 Baso % (Auto) 0.4 Neut # (Auto) 1.7 L Lymph # (Auto) 2.5 [place] # (Auto) 0.3 Eos # (Auto) 0.1 Baso # (Auto) 0.0 Sodium 148 Potassium 3.8 Chloride 106 Carbon Dioxide 30 Anion Gap 15 BUN 19 H Creatinine 1.2 Est GFR ( Amer) 54 Est GFR (Non-Af Amer) 45 POC Glucose (mg/dL) Random Glucose 91 Calcium 8.9 Magnesium 1.2 L Vitamin B12 Urine Color Urine Clarity Urine pH Ur Specific [place] Urine Protein Urine Glucose (UA) Urine Ketones Urine Blood Urine Nitrate Urine Bilirubin Urine Urobilinogen Ur Leukocyte Esterase Urine WBC (Auto) Urine RBC (Auto) Ur Squamous Epith Cells Urine Osmolality Ur Random Creatinine Ur Random Sodium Ur Random Potassium Hepatitis A IgM Ab Negative Hep Bs Antigen Negative Hep B Core IgM Ab Negative Hepatitis C Antibody Negative HIV 1&2 Antibody Screen 08/16/17 08:26 WBC RBC Hgb Hct MCV MCH MCHC RDW Plt Count MPV Neut % (Auto) Lymph % (Auto) [place] % (Auto) Eos % (Auto) Baso % (Auto) Neut # (Auto) Lymph # (Auto) [place] # (Auto) Eos # (Auto) Baso # (Auto) Sodium Potassium Chloride Carbon Dioxide Anion Gap BUN Creatinine Est GFR ( Amer) Est GFR (Non-Af Amer) POC Glucose (mg/dL) Random Glucose Calcium Magnesium Vitamin B12 Urine Color Urine Clarity Urine pH Ur Specific [place] Urine Protein Urine Glucose (UA) Urine Ketones Urine Blood Urine Nitrate Urine Bilirubin Urine Urobilinogen Ur Leukocyte Esterase Urine WBC (Auto) Urine RBC (Auto) Ur Squamous Epith Cells Urine Osmolality Ur Random Creatinine Ur Random Sodium Ur Random Potassium Hepatitis A IgM Ab Hep Bs Antigen Hep B Core IgM Ab Hepatitis C Antibody HIV 1&2 Antibody Screen Negative
--- NOTE | 2017-08-16 11:48 | MRI ---
PROCEDURE: MRI BRAIN WITHOUT CONTRAST HISTORY: ams COMPARISON: Unenhanced brain MRI 05/15/2014. TECHNIQUE: Multiplanar, multisequence MR images of the brain were obtained without intravenous contrast enhancement. FINDINGS: HEMORRHAGE: Punctate hemosiderin deposition is appreciated once again at the medial right temporal lobe and upper left periventricular white matter. Similar foci are not captured at the medial left thalamus inferior right cerebellum potentially reflecting the same though this is not definite. These do not reflect acute hemorrhage as compared prior head CT 08/14/2017. DWI: No evidence of an acute or early subacute infarction. BRAIN PARENCHYMA: Multiple bilateral chronic lacune is seen at the deep white matter of the bilateral frontal lobes as well as the bilateral thalami once again as well as mild diffuse cerebral atrophy chronic microangiopathy, which appear age-appropriate. Note, the pattern of white matter changes in the cerebrum which previously shown to include the corpus callosum. No sagittal FLAIR sequences including the current study however demyelination may coexist with chronic microangiopathy in this patient. There is no mass-effect or cortical edema appreciated. The posterior fossa contents exclusive of the inferior right cerebellar hemosiderin remarkable for chronic microangiopathy occasionally in white matter of the right cerebellum in the interval. VENTRICLES: Unremarkable. No hydrocephalus. CRANIUM: Unremarkable. ORBITS: Grossly unremarkable. PARANASAL SINUSES/MASTOIDS: Clear VASCULAR SYSTEM: Skull base flow voids intact. OTHER FINDINGS: None. IMPRESSION: No evidence of acute or subacute brain infarction, mass effect or significant intracranial hemorrhage. Multiple chronic lacunes are reiterated. 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
--- NOTE | 2017-08-16 12:03 | CP.PCM.PN ---
Subjective - Date & Time of Evaluation Date of Evaluation: 08/16/17 Time of Evaluation: 12:00 - Subjective Subjective: CONDITION REMAINS SAME. FORGETFUL. NO HEADACHES. WENT FOR EEG. MRI NO ACUTE PATHOLOGY. Objective - Vital Signs/Intake and Output Vital Signs (last 24 hours): Temp Pulse Resp BP Pulse Ox 98.0 F 54 L 20 157/79 H 99 08/16/17 07:40 08/16/17 07:40 08/16/17 07:40 08/16/17 07:40 08/16/17 07:40 Intake and Output: 08/16/17 08/16/17 06:59 18:59 Intake Total 500 Balance 500 - Medications Medications: Current Medications Amlodipine Besylate (Norvasc) 5 mg PO DAILY [facility] Last Admin: 08/16/17 10:09 Dose: 5 mg Aspirin (Aspirin Chewable) 81 mg PO DAILY [facility] Last Admin: 08/16/17 10:08 Dose: 81 mg Ceftriaxone Sodium 1 gm/ (Sodium Chloride) 100 mls @ 100 mls/hr IVPB DAILY [facility] PRN Reason: Protocol Last Admin: 08/16/17 10:12 Dose: 100 mls/hr Losartan Potassium (Cozaar) 50 mg PO DAILY [facility] Last Admin: 08/16/17 10:09 Dose: 50 mg Metformin HCl (Glucophage) 500 mg PO BID [facility] Last Admin: 08/16/17 10:09 Dose: 500 mg Pneumococcal Polyvalent Vaccine (Pneumovax 23 Vaccine) 0.5 ml IM .ONCE ONE Stop: 08/17/17 14:01 - Labs Labs: 08/16/17 08:26 08/16/17 08:26 PT 11.5 SECONDS (9.7-12.2) 08/14/17 17:44 INR 1.1 08/14/17 17:44 APTT 35 SECONDS (21-34) H 08/14/17 17:44 - Constitutional Appears: No Acute Distress, Chronically Ill - Eye Exam Eye Exam: EOMI, Normal appearance, PERRL Pupil Exam: NORMAL ACCOMODATION, PERRL - ENT Exam ENT Exam: Mucous Membranes Moist, Normal Exam - Neck Exam Neck Exam: Full ROM, Normal Inspection. absent: Lymphadenopathy - Respiratory Exam Respiratory Exam: Clear to Ausculation Bilateral, NORMAL BREATHING PATTERN - Cardiovascular Exam Cardiovascular Exam: REGULAR RHYTHM, +S1, +S2. absent: Murmur - GI/Abdominal Exam GI & Abdominal Exam: Soft, Normal Bowel Sounds. absent: Tenderness - Extremities Exam Extremities Exam: Full ROM, Normal Capillary Refill, Normal Inspection. absent : Joint Swelling, Pedal Edema - Back Exam Back Exam: NORMAL INSPECTION Assessment and Plan - Assessment and Plan (Free Text) Assessment: AMS, PROBABLY FROM COCAINE USE. HTN. CRF. Plan: CT PRESENT MANAGEMENT. PER NEURO.
--- NOTE | 2017-08-16 19:13 | CP.PCM.PN ---
Subjective - Date & Time of Evaluation Date of Evaluation: 08/16/17 Time of Evaluation: 08:00 - Subjective Subjective: Memory loss + less fever / chills less dysuria IV rx in progress neuro eval pending + confusion May need ISH Objective - Vital Signs/Intake and Output Vital Signs (last 24 hours): Temp Pulse Resp BP Pulse Ox 97.1 F L 67 20 202/82 H 97 08/16/17 15:45 08/16/17 15:45 08/16/17 15:45 08/16/17 15:53 08/16/17 15:45 - Medications Medications: Current Medications Amlodipine Besylate (Norvasc) 5 mg PO DAILY [facility] Last Admin: 08/16/17 10:09 Dose: 5 mg Aspirin (Aspirin Chewable) 81 mg PO DAILY [facility] Last Admin: 08/16/17 10:08 Dose: 81 mg Clonidine HCl (Catapres) 0.1 mg PO BID [facility] Last Admin: 08/16/17 17:46 Dose: 0.1 mg Ceftriaxone Sodium 1 gm/ (Sodium Chloride) 100 mls @ 100 mls/hr IVPB DAILY [facility] PRN Reason: Protocol Last Admin: 08/16/17 10:12 Dose: 100 mls/hr Losartan Potassium (Cozaar) 50 mg PO DAILY [facility] Last Admin: 08/16/17 10:09 Dose: 50 mg Metformin HCl (Glucophage) 500 mg PO BID [facility] Last Admin: 08/16/17 17:46 Dose: 500 mg Pneumococcal Polyvalent Vaccine (Pneumovax 23 Vaccine) 0.5 ml IM .ONCE ONE Stop: 08/17/17 14:01 - Labs Labs: 08/16/17 08:26 08/16/17 08:26 PT 11.5 SECONDS (9.7-12.2) 08/14/17 17:44 INR 1.1 08/14/17 17:44 APTT 35 SECONDS (21-34) H 08/14/17 17:44 - Constitutional Appears: Non-toxic, Confused, Chronically Ill - Head Exam Head Exam: NORMOCEPHALIC - Eye Exam Eye Exam: absent: Scleral icterus - ENT Exam ENT Exam: Mucous Membranes Dry - Neck Exam Neck Exam: absent: Lymphadenopathy - Respiratory Exam Respiratory Exam: Decreased Breath Sounds - Cardiovascular Exam Cardiovascular Exam: REGULAR RHYTHM - GI/Abdominal Exam GI & Abdominal Exam: Distended - Rectal Exam Rectal Exam: Deferred - Exam Exam: NORMAL INSPECTION - Extremities Exam Extremities Exam: absent: Pedal Edema - Back Exam Back Exam: absent: CVA tenderness (L), CVA tenderness (R) - Neurological Exam Neurological Exam: Alert, Awake, Oriented x3 - Psychiatric Exam Psychiatric exam: Depressed - Skin Skin Exam: Dry Assessment and Plan (1) Altered mental status Status: Acute (2) UTI (urinary tract infection) Status: Acute (3) Acute kidney injury Status: Acute (4) Diabetes Status: Acute (5) Headache Status: Acute (6) Hypertensive emergency Status: Acute (7) Leukocytosis Status: Acute - Assessment and Plan (Free Text) Assessment: will need psych eval consider ISH cont IV antibiotics neuro eval pending
--- NOTE | 2017-08-16 21:57 | CARD ---
APPROVED REPORT EXAM: Two-dimensional and M-mode echocardiogram with Doppler and color Doppler. Other Information Quality : GoodRhythm : RISK FACTORS Hypertension Diabetes 2D DIMENSIONS IVSd1.1 (0.7-1.1cm)Aortic Root (2D)3.3 (2.0-3.7cm) LVDd3.9 (3.9-5.9cm)PWd1.0 (0.7-1.1cm) LVDs2.2 (2.5-4.0cm)FS (%) 42.9 % LVEF (%)74.6 (>50%) M-Mode DIMENSIONS RVDd2.49 (2.1-3.2cm)Left Atrium (MM)3.46 (2.5-4.0cm) IVSd1.66 (0.7-1.1cm)Aortic Root3.51 (2.2-3.7cm) LVDd4.39 (4.0-5.6cm)Aortic Cusp Exc.2.30 (1.5-2.0cm) PWd1.23 (0.7-1.1cm)FS (%) 36 % LVDs2.82 (2.0-3.8cm)LVEF (%)65 (>50%) Mitral Valve MV E Ribqhcvr67.9cm/sMV A Dssptyjt400.8cm/sE/A ratio0.7 TDI E/Lateral E'0.0E/Medial E'0.0 Tricuspid Valve TR Peak Geauujeb997oc/sTR Peak Gr.[id number] LEFT VENTRICLE The left ventricle is normal size. There is borderline concentric left ventricular hypertrophy. Left ventricle systolic function is normal. The Ejection Fraction is 60-65%. There is normal LV segmental wall motion. Transmitral Doppler flow pattern is Grade I-abnormal relaxation pattern. There is no ventricular septal defect visualized. RIGHT VENTRICLE The right ventricle is normal size. The right ventricular systolic function is normal. ATRIA The left atrium is mildly dilated. The right atrium size is normal. AORTIC VALVE The aortic valve is mildly sclerotic. The aortic valve is tri-cuspid. No aortic regurgitation is present. There is no aortic valvular stenosis. MITRAL VALVE The mitral valve is normal in structure. There is no evidence of mitral valve prolapse. Mitral regurgitation is trace. TRICUSPID VALVE The tricuspid valve is normal in structure. There is trace tricuspid regurgitation. There is no pulmonary hypertension. PULMONIC VALVE The pulmonary valve is normal in structure. There is mild to moderate pulmonic valvular regurgitation. GREAT VESSELS The aortic root is normal in size. The ascending aorta is normal in size. The IVC is normal in size and collapses >50% with inspiration. PERICARDIAL EFFUSION There is no pericardial effusion. <Conclusion> Left ventricle systolic function is normal. The Ejection Fraction is 60-65%. Transmitral Doppler flow pattern is Grade I-abnormal relaxation pattern. Mitral regurgitation is trace.
[2017-08-17 07:29] LABS: BASO % 0.7 % (0.0-2.0); EOS # 0.1 K/uL (0.0-0.7); EOS % 1.8 % (0.0-4.0); HEMOGLOBIN 11.3 g/dL (11.0-16.0); LYMPH # 2.7 K/uL (1.0-4.3); LYMPH % 54.6 % (20.0-40.0); MEAN CELL VOLUME 81.7 fL (81.0-99.0); MEAN CORPUSCULAR HEMOGLOBIN 27.5 pg (27.0-31.0); MEAN CORPUSCULAR HGB CONC 33.7 g/dL (33.0-37.0); MEAN PLATELET VOLUME 9.3 fL (7.2-11.7); MONO # 0.4 K/uL (0.0-0.8); NEUT # 1.7 K/uL (1.8-7.0); NEUT % 33.9 % (50.0-75.0); RBC 4.09 Mil/uL (3.80-5.20); RED CELL DISTRIBUTION WIDTH 13.6 % (11.5-14.5)
[2017-08-17 07:45] LABS: ALB/GLOB RATIO 1.1 (1.0-2.1); ALBUMIN 3.9 g/dL (3.5-5.0); ALT/SGPT < 6 U/L (9-52); AST/SGOT 12 U/L (14-36); BLOOD UREA NITROGEN 25 mg/dL (7-17); CALCIUM 8.9 mg/dl (8.6-10.4); GFR AFRICAN-AMERICAN 39; GFR NON-AFRICAN AMERICAN 32
--- NOTE | 2017-08-17 10:07 | CP.PCM.PN ---
Subjective - Date & Time of Evaluation Date of Evaluation: 08/17/17 Time of Evaluation: 10:06 - Subjective Subjective: pt is seen and examined, follow up consult is dictated #[id number] c/w ivf 1/n ns at 100 ml/hr Objective - Vital Signs/Intake and Output Vital Signs (last 24 hours): Temp Pulse Resp BP Pulse Ox 97.9 F 48 L 20 142/80 100 08/17/17 07:30 08/17/17 07:55 08/17/17 07:30 08/17/17 07:30 08/17/17 07:30 - Medications Medications: Current Medications Amlodipine Besylate (Norvasc) 5 mg PO DAILY [facility] Last Admin: 08/17/17 10:03 Dose: 5 mg Aspirin (Aspirin Chewable) 81 mg PO DAILY [facility] Last Admin: 08/17/17 10:04 Dose: 81 mg Hydralazine HCl (Apresoline) 25 mg PO TID [facility] Last Admin: 08/17/17 10:03 Dose: 25 mg Ceftriaxone Sodium 1 gm/ (Sodium Chloride) 100 mls @ 100 mls/hr IVPB DAILY [facility] PRN Reason: Protocol Last Admin: 08/17/17 10:04 Dose: 100 mls/hr Losartan Potassium (Cozaar) 50 mg PO DAILY [facility] Last Admin: 08/17/17 10:04 Dose: 50 mg Metformin HCl (Glucophage) 500 mg PO BID [facility] Last Admin: 08/17/17 10:04 Dose: 500 mg Pneumococcal Polyvalent Vaccine (Pneumovax 23 Vaccine) 0.5 ml IM .ONCE ONE Stop: 08/17/17 14:01 - Labs Labs: 08/17/17 07:08 08/17/17 07:08 PT 11.5 SECONDS (9.7-12.2) 08/14/17 17:44 INR 1.1 08/14/17 17:44 APTT 35 SECONDS (21-34) H 08/14/17 17:44
--- NOTE | 2017-08-17 11:27 | CON ---
DATE: 08/16/2017 REQUESTED BY: Dr. Gregorio Moulton and Dr. Ranjeet Claudio. REASON FOR FOLLOWUP: Increased BUN and creatinine and for further evaluation. HISTORY OF PRESENT ILLNESS: Mrs. Padron is a 66 years old elderly -[place] female with past medical history significant for hypertension, diabetes, arthritis and TIA status post cataract surgery, history of cocaine abuse in the past, who was admitted with chief complaints of altered mental status. As per the patient's history obtained from review of the chart, the patient is a poor historian at this time. As per the patient daughter, the patient was noted not moving her car on the street and parking tickets and with memory loss and as per the patient's daughter, she saw cocaine in patient's house. No witnessed recent cocaine use in the last 6 days. Baseline, she is oriented x3 and functional. The patient is not in acute distress at this time. Denies any chest pain or palpitation. Denies any fever or cough. Denies any abdominal pain. Denies any nausea, vomiting, diarrhea. The patient knows that she is in hospital, she does not know the month and date and the year, not in distress. PAST MEDICAL HISTORY: Significant for hypertension, diabetes, TIA and arthritis. PAST SURGICAL HISTORY: Status post left knee replacement. ALLERGIES: NO KNOWN DRUG ALLERGIES. SOCIAL HISTORY: Denies any smoking, alcohol, history of cocaine abuse. The patient claims she used cocaine last time about 5 years ago. PERSONAL HISTORY: She is . She has four children. FAMILY HISTORY: Not significant. CURRENT MEDICATIONS: Aspirin 81 mg daily, clonidine 0.1 mg p.o. b.i.d., Rocephin 1 gm daily, losartan 50 mg p.o. daily, metformin 500 mg b.i.d., amlodipine 5 mg p.o. daily, pneumococcal vaccine x1 scheduled for tomorrow. REVIEW OF SYSTEMS: Significant for altered mental status, all other review of systems are reviewed and are negative. PHYSICAL EXAMINATION: VITAL SIGNS: Blood pressure 138/86, pulse 67, respirations 20, temperature 97.1, saturation 97%. Height 5 feet 5 inches, weight is 171 pounds. GENERAL: Mrs. Padron is a 66 years old elderly female, moderately built, moderately nourished, not in acute distress. HEENT: Pupils normal, react to light and accommodation. Conjunctivae pink. Sclerae anicteric. Tongue is moist. Trachea is midline. LUNGS: Symmetric on both sides. Bilateral breath sounds present. Clear to auscultation. CVS: [place] at the fifth intercostal space, half inch middle to midclavicular line. S1 and S2 audible. No murmur or gallop. ABDOMEN: Normal in appearance, soft, tympanic. No guarding, no rigidity. No hepatosplenomegaly. LAB SCIENTIST: The patient is alert, awake, oriented x1-2. Sensory and motor system is grossly within normal limits. EXTREMITIES: No cyanosis, no clubbing, no edema. The patient has a scar on the right knee joint from the previous knee replacement surgery. LABORATORY DATA: As of 08/16/2017; WBC 4.7, hemoglobin 11.5, hematocrit is 33.9, platelets 206. Sodium 138, potassium 3.8, chloride 106, CO2 30, BUN 19, creatinine 1.2, glucose 91, calcium 8.1, magnesium 1.2. Hepatitis A antibody IgM negative. Hepatitis B surface antigen negative. Core antibody is negative. Hep C antibody is negative. HIV is negative. Accu-Cheks 138, 134 and 115. The other laboratory data as of 08/14/2017 serum creatinine is 1.6, as of 08/15/2017 creatinine is 1.4. As of 08/14/2017; sodium 146, potassium 5.3, chloride 107, CO 28, BUN 28, creatinine 1.6, glucose 93, calcium 10.1. Troponin 0.012 and cholesterol is 230, triglycerides 187, LDL 152, HDL 36. TSH is 1.48 and free thyroxine is 1.03 and vitamin B12 is 307. Chest x-ray as of 08/14/2017; no active pulmonary disease. CT of the head as of 08/14/2017; there are moderate chronic microangiopathic changes. There are old lacunar infarcts in the right posterior limb of internal capsule, right thalamus and left basal ganglia, there is no mass effect or abnormal extra-axial fluid collection. Impression; no acute intracranial abnormality, moderate chronic microangiopathic changes and moderate age-related global parenchymal volume loss, old lacunar infarction in the right posterior limb of the internal capsule, right thalamus and left basal ganglia. MRI of the brain as of 08/16/2017, impression; no evidence of acute or subacute brain infarction, mass effect or significant intracranial hemorrhage, multiple chronic lacunes are reiterated, 2 prior cavernomas are identified. ASSESSMENT: In summary, Mrs. Padron is a 66 years old female with history of hypertension, diabetes, transient ischemic attack, history of cocaine abuse and now urine toxicology screen is positive for cocaine with altered mental status and increased BUN and creatinine. 1. Acute renal failure, most likely secondary to intravascular volume depletion. 2. Cocaine abuse. 3. Hypertension. 4. Old cerebrovascular accident. PLAN: Renal function is improving with gentle hydration. Continue to monitor electrolytes, renal function is stable at this time. We will follow up as needed. Thank you for allowing me to participate in your patient's care. Lolly Ferrer MD
[2017-08-17] MEDS: Sodium Chloride 0.45% 1,000 ML IV SCH ×2 (11:50→20:15)
[2017-08-17] MEDS ORDERED: Magnesium Sulfate 1 gm in D5W 1 GM/100 ML BAG IVPB ONE ×2 (12:01→16:22)
[2017-08-17] MEDS: Magnesium Sulfate 1 gm in D5W 1 GM/100 ML BAG IVPB SCH ×2 (12:43→14:10)
--- NOTE | 2017-08-17 12:48 | PCM.PSYCH ---
Initial Psychiatric Evaluation - Initial Psychiatric Evaluation Type of Admission: Voluntary Legal Status: Capacity Chief Complaint (in patient's own words): I'm feeling fine History of Present Illness and Precipitating Events: This is a 66 year old female who came to the ED with acute onset of altered mental status. today patient was consulted. As per the staff, patient is doing much better, today. Patient was seen at bedside. She is alert, awake and oriented to time place and person. she denies any depressed mood or any feelings of hopelessness. She denies any confusion or drowsiness. She denies any anxiety, or panic attacks. Patient denies change in sleep, decrease in interests, decrease in concentration, decrease in appetite, and denies any feeling of guilt. Patient reports she just eager to go home since she does not like staying in the hospital for a long period of time. PMHx: arthritis, diabetes, hypertension, TIA PSHx: Denies FamHx: Denies Allergies: No Known Allergies Social: Denies smoking and illicit drug use. Patient drinks alcohol socially at events, usually vodka. Current Medications: Active Medications Generic Name Dose Route Start Last Admin Trade Name Freq PRN Reason Stop Dose Admin Amlodipine Besylate 5 mg 08/14/17 21:30 08/17/17 10:03 Norvasc PO 5 mg DAILY [facility] Administration Aspirin 81 mg 08/14/17 21:15 08/17/17 10:04 Aspirin Chewable PO 81 mg DAILY [facility] Administration Hydralazine HCl 25 mg 08/17/17 10:00 08/17/17 10:03 Apresoline PO 25 mg TID [facility] Administration Ceftriaxone Sodium 1 gm/ 100 mls @ 100 mls/hr 08/15/17 16:00 08/17/17 10:04 Sodium Chloride IVPB 100 mls/hr DAILY [facility] Administration Protocol Sodium Chloride 1,000 mls @ 100 mls/hr 08/17/17 10:15 08/17/17 11:50 Sodium Chloride 0.45% IV 100 mls/hr .Q10H [facility] Administration Magnesium Sulfate/Dextrose 1 gm in 100 mls @ 300 mls/hr 08/17/17 12:00 12:43 Magnesium Sulfate 1 Gm/100 Ml D5w IVPB 08/17/17 12:49 300 mls/hr Q30M [facility] Administration Losartan Potassium 50 mg 08/15/17 11:30 08/17/17 10:04 Cozaar PO 50 mg DAILY [facility] Administration Metformin HCl 500 mg 08/15/17 11:30 08/17/17 10:04 Glucophage PO 500 mg BID [facility] Administration Pneumococcal Polyvalent Vaccine 0.5 ml 08/17/17 14:00 Pneumovax 23 Vaccine IM 08/17/17 14:01 .ONCE ONE Past Psychiatric History - Past Psychiatric History Previous Treatment History: None Pertinent Medical Hx (Current Medical&Sleep Prob, Allergies): Allergies Allergy/AdvReac Type Severity Reaction Status Date / Time No Known Allergies Allergy Verified 03/03/14 09:20 Aspirin 08/14/17 Carvedilol 08/14/17 Clonidine 08/14/17 Diovan 08/14/17 MetFORMIN 08/14/17 amLODIPine 08/14/17 Review of Systems - Review of Systems All systems: reviewed and no additional remarkable complaints except - Psychiatric Psychiatric: Anxiety. absent: Suicidal Ideation Mental Status Examination - Personal Presentation Personal Presentation: Looks stated age - Affect Affect: Constricted - Motor Activity Motor Activity: Calm - Reliability in Providing Information Reliability in Providing Information: Good - Speech Speech: Organized - Mood Mood: Neutral - Formal Thought Process Formal Thought Process: No Impairment - Obsessions/Compulsions Obsessions: No Compulsions: No - Cognitive Functions Orientation: Person, Place, Situation, Time Sensorium: Alert Attention/Concentration: Attentive Abstract Thinking: [place] Estimate of Intelligence: Below average Judgement: Intact, as evidence by: Good judgement, Intact, as evidence by: Insight regarding need for hospitalization - Risk Risk: Other - Strength & Assets Inventory Strength & Assets Inventory: Family support, Employment status - Limitations Limitations: Living alone DSM 5 DX - DSM 5 DSM 5 Diagnosis: delirium due to general medical condition - Recommended/Plan of Treatment Treatment Recommendations and Plan of Treatment: patient is psychiatrically stable and clear for discharge.
--- NOTE | 2017-08-17 12:50 | CP.PCM.PN ---
Subjective - Date & Time of Evaluation Date of Evaluation: 08/17/17 Time of Evaluation: 12:48 - Subjective Subjective: PT APPEARS BETTER. IMPROVING. BP HIGH, MEDS ADJUSTED. Objective - Vital Signs/Intake and Output Vital Signs (last 24 hours): Temp Pulse Resp BP Pulse Ox 97.9 F 48 L 20 142/80 100 08/17/17 07:30 08/17/17 07:55 08/17/17 07:30 08/17/17 07:30 08/17/17 07:30 - Medications Medications: Current Medications Amlodipine Besylate (Norvasc) 5 mg PO DAILY [facility] Last Admin: 08/17/17 10:03 Dose: 5 mg Aspirin (Aspirin Chewable) 81 mg PO DAILY [facility] Last Admin: 08/17/17 10:04 Dose: 81 mg Hydralazine HCl (Apresoline) 25 mg PO TID [facility] Last Admin: 08/17/17 10:03 Dose: 25 mg Ceftriaxone Sodium 1 gm/ (Sodium Chloride) 100 mls @ 100 mls/hr IVPB DAILY [facility] PRN Reason: Protocol Last Admin: 08/17/17 10:04 Dose: 100 mls/hr Sodium Chloride (Sodium Chloride 0.45%) 1,000 mls @ 100 mls/hr IV .Q10H [facility] Last Admin: 08/17/17 11:50 Dose: 100 mls/hr Magnesium Sulfate/Dextrose (Magnesium Sulfate 1 Gm/100 Ml D5w) 1 gm in 100 mls @ 300 mls/hr IVPB Q30M [facility] Stop: 08/17/17 12:49 Last Admin: 08/17/17 12:43 Dose: 300 mls/hr Losartan Potassium (Cozaar) 50 mg PO DAILY [facility] Last Admin: 08/17/17 10:04 Dose: 50 mg Metformin HCl (Glucophage) 500 mg PO BID [facility] Last Admin: 08/17/17 10:04 Dose: 500 mg Pneumococcal Polyvalent Vaccine (Pneumovax 23 Vaccine) 0.5 ml IM .ONCE ONE Stop: 08/17/17 14:01 - Labs Labs: 08/17/17 07:08 08/17/17 07:08 PT 11.5 SECONDS (9.7-12.2) 08/14/17 17:44 INR 1.1 08/14/17 17:44 APTT 35 SECONDS (21-34) H 08/14/17 17:44 - Constitutional Appears: No Acute Distress, Chronically Ill - Eye Exam Eye Exam: EOMI, Normal appearance, PERRL Pupil Exam: NORMAL ACCOMODATION, PERRL - ENT Exam ENT Exam: Mucous Membranes Moist, Normal Exam - Neck Exam Neck Exam: Full ROM, Normal Inspection. absent: Lymphadenopathy - Respiratory Exam Respiratory Exam: Clear to Ausculation Bilateral, NORMAL BREATHING PATTERN - Cardiovascular Exam Cardiovascular Exam: REGULAR RHYTHM, +S1, +S2. absent: Murmur - Extremities Exam Extremities Exam: Full ROM, Normal Capillary Refill, Normal Inspection. absent : Joint Swelling, Pedal Edema - Neurological Exam Neurological Exam: Awake, Oriented x3 - Psychiatric Exam Psychiatric exam: Normal Affect, Normal Mood Assessment and Plan - Assessment and Plan (Free Text) Assessment: AMS IMPROVED. HTN. CRF. Plan: FOR PSYCH CLEARANCE. CT OTHER TREATMENT.
[2017-08-17] MEDS ORDERED: Pneumococcal 23-Valent Vaccine IM ONE (14:00)
--- NOTE | 2017-08-17 16:30 | PN ---
DATE: 08/17/2017 The patient is located in room 565, bed B. Requested by Dr. Ric Moulton and by Dr. Claudio. REASON FOR FOLLOWUP: Acute renal failure. SUBJECTIVE: Mrs. Padron is a 66-year-old -Japanese female who is working as CPA nursing instructor in [employer] with past medical history significant for longstanding hypertension, diabetes, history of drug abuse who was admitted with altered mental status. The patient's family noticed she is not moving her car, accumulating tickets from the street, and the patient's family found cocaine artifacts in the patient's house but no weakness; recent use of cocaine in the last 6 days, and patient was admitted with altered mental status. The patient was also found to have urine toxic screen positive for cocaine. The patient is alert, awake, and oriented x2, not in distress. The patient does not know the year and does not know the date today. The patient is able to recognize her friends and the names. No chest pain. No palpitation. No fever. No cough. No abdominal pain. No nausea, vomiting or diarrhea. PHYSICAL EXAMINATION: VITAL SIGNS: This morning as follows: Blood pressure 142/80, pulse 58, respirations 20, temperature 97.9, saturations 100%, height 5 feet 5 inches, weight is 171 pounds. HEENT: Mrs. Padron is a 66 years old elderly -Japanese female, moderately built, moderately nourished, not in distress. HEENT: Pupils normal, reactive to light and accommodation. Conjunctivae pink. Sclerae anicteric. Tongue is moist. Trachea is midline. LUNGS: Symmetric on both sides. Bilateral breath sounds present. Clear to auscultation. CVS: [place] at the fifth intercostal space, midclavicular line. S1 and S2 audible. No murmur or gallop. ABDOMEN: Normal in appearance, soft, tympanic. No guarding, no rigidity. No hepatosplenomegaly. POWER MARKETER: The patient is alert, awake, oriented x2. Sensory and motor system is within normal limits. The patient knows that she is in the hospital, [facility], but she does know the date and month and year. The patient claims it is 1986. EXTREMITIES: No cyanosis, no clubbing, no edema. MEDICATIONS: Her current medications include as follows: Hydralazine 25 mg p.o. t.i.d., aspirin 81 mg daily, Rocephin 1 1 g daily, IV fluids half normal saline started at 100 mL per hour today, losartan 50 mg p.o. daily and metformin 500 mg p.o. b.i.d., amlodipine 5 mg daily, Pneumovax x1 dose. LABORATORY DATA: Include as follows, as of 08/17/2017, WBC 5, hemoglobin 11.3, hematocrit is 33.4, platelets 203. Sodium 146, potassium 3.7, chloride 105, CO2 30, BUN 25, creatinine 1.6, glucose is 135, calcium 8.9, magnesium is 1.2, total bili 0.4, AST 12, ALT 6, alkaline phosphatase 43, total protein 7.4, albumin is 3.9. ASSESSMENT AND PLAN: In summary, Mrs. Padron is a 66 years old elderly -Japanese female with a past medical history significant for longstanding hypertension, diabetes, history of cocaine abuse, now urine toxic screen is positive for cocaine, admitted with altered mental status and not going to the work for the last one month and the patient's friends at bedside and not able to move the car and accumulating parking tickets as per the patient's daughter, when the patient was brought to the emergency room, also found to have elevated BUN and creatinine. 1. Acute renal failure, most likely secondary to intravascular volume depletion secondary to decreased p.o. intake, cannot rule out acute tubular necrosis secondary to drug abuse, cocaine, rule out rhabdo, we will check CPK level, and we will start IV fluids and half normal saline at 100 mL/hour. 2. Hypertension, continue blood pressure medication, hydralazine and Norvasc, and titrate as needed. 3. Type 2 diabetes, continue metformin. 4. Consider psych evaluation to rule out dementia versus delirium secondary to drug abuse. We will follow with you. Thank you for allowing me to participate in your patient's care. We will also check CPK levels. Lolly Ferrer MD
--- NOTE | 2017-08-17 17:27 | CP.PCM.PN ---
Subjective - Date & Time of Evaluation Date of Evaluation: 08/17/17 Time of Evaluation: 08:00 - Subjective Subjective: improving slowly Objective - Vital Signs/Intake and Output Vital Signs (last 24 hours): Temp Pulse Resp BP Pulse Ox 97.9 F 64 20 132/73 96 08/17/17 15:00 08/17/17 15:00 08/17/17 15:00 08/17/17 15:00 08/17/17 15:00 Intake and Output: 08/17/17 08/17/17 06:59 18:59 Intake Total 660 Balance 660 - Medications Medications: Current Medications Amlodipine Besylate (Norvasc) 5 mg PO DAILY [facility] Last Admin: 08/17/17 10:03 Dose: 5 mg Aspirin (Aspirin Chewable) 81 mg PO DAILY [facility] Last Admin: 08/17/17 10:04 Dose: 81 mg Hydralazine HCl (Apresoline) 25 mg PO TID [facility] Last Admin: 08/17/17 14:50 Dose: 25 mg Ceftriaxone Sodium 1 gm/ (Sodium Chloride) 100 mls @ 100 mls/hr IVPB DAILY [facility] PRN Reason: Protocol Last Admin: 08/17/17 10:04 Dose: 100 mls/hr Sodium Chloride (Sodium Chloride 0.45%) 1,000 mls @ 100 mls/hr IV .Q10H [facility] Last Admin: 08/17/17 11:50 Dose: 100 mls/hr Losartan Potassium (Cozaar) 50 mg PO DAILY [facility] Last Admin: 08/17/17 10:04 Dose: 50 mg Metformin HCl (Glucophage) 500 mg PO BID [facility] Last Admin: 08/17/17 10:04 Dose: 500 mg - Labs Labs: 08/17/17 07:08 08/17/17 07:08 PT 11.5 SECONDS (9.7-12.2) 08/14/17 17:44 INR 1.1 08/14/17 17:44 APTT 35 SECONDS (21-34) H 08/14/17 17:44 Assessment and Plan (1) Altered mental status Status: Acute (2) UTI (urinary tract infection) Status: Acute (3) Acute kidney injury Status: Acute (4) Diabetes Status: Acute (5) Headache Status: Acute (6) Hypertensive emergency Status: Acute (7) Leukocytosis Status: Acute
[2017-08-18 08:54] LABS: BASO % 0.9 % (0.0-2.0); EOS # 0.1 K/uL (0.0-0.7); EOS % 2.1 % (0.0-4.0); HEMOGLOBIN 10.9 g/dL (11.0-16.0); LYMPH # 2.3 K/uL (1.0-4.3); MEAN CELL VOLUME 82.4 fL (81.0-99.0); MEAN CORPUSCULAR HEMOGLOBIN 27.8 pg (27.0-31.0); MEAN CORPUSCULAR HGB CONC 33.8 g/dL (33.0-37.0); MEAN PLATELET VOLUME 9.3 fL (7.2-11.7); MONO # 0.4 K/uL (0.0-0.8); MONO % 8.5 % (0.0-10.0); NEUT # 1.6 K/uL (1.8-7.0); NEUT % 35.5 % (50.0-75.0); NRBC % 0.1 % (0.0-2.0); RBC 3.9 Mil/uL (3.80-5.20); RED CELL DISTRIBUTION WIDTH 13.6 % (11.5-14.5); WHITE BLOOD COUNT 4.4 K/uL (4.8-10.8)
[2017-08-18 09:05] LABS: ALBUMIN 3.7 g/dL (3.5-5.0); ALT/SGPT 7 U/L (9-52); AST/SGOT 13 U/L (14-36); BLOOD UREA NITROGEN 19 mg/dL (7-17); CALCIUM 8.8 mg/dl (8.6-10.4); GFR AFRICAN-AMERICAN > 60; GFR NON-AFRICAN AMERICAN 50
--- NOTE | 2017-08-18 11:12 | CP.PCM.PN ---
Subjective - Date & Time of Evaluation Date of Evaluation: 08/18/17 Time of Evaluation: 11:11 - Subjective Subjective: pt is seen and examined, follow up consult is dictated #[id number] Objective - Vital Signs/Intake and Output Vital Signs (last 24 hours): Temp Pulse Resp BP Pulse Ox 97.9 F 68 18 148/88 99 08/18/17 07:45 08/18/17 07:45 08/18/17 07:45 08/18/17 07:45 08/18/17 07:45 - Medications Medications: Current Medications Amlodipine Besylate (Norvasc) 5 mg PO DAILY [facility] Last Admin: 08/18/17 09:57 Dose: 5 mg Aspirin (Aspirin Chewable) 81 mg PO DAILY [facility] Last Admin: 08/18/17 09:56 Dose: 81 mg Hydralazine HCl (Apresoline) 25 mg PO TID [facility] Last Admin: 08/18/17 09:57 Dose: 25 mg Ceftriaxone Sodium 1 gm/ (Sodium Chloride) 100 mls @ 100 mls/hr IVPB DAILY [facility] PRN Reason: Protocol Last Admin: 08/18/17 09:56 Dose: 100 mls/hr Sodium Chloride (Sodium Chloride 0.45%) 1,000 mls @ 100 mls/hr IV .Q10H [facility] Last Admin: 08/17/17 20:15 Dose: Not Given Losartan Potassium (Cozaar) 50 mg PO DAILY [facility] Last Admin: 08/18/17 09:57 Dose: 50 mg Metformin HCl (Glucophage) 500 mg PO BID [facility] Last Admin: 08/18/17 09:56 Dose: 500 mg - Labs Labs: 08/18/17 08:38 08/18/17 08:38 PT 11.5 SECONDS (9.7-12.2) 08/14/17 17:44 INR 1.1 08/14/17 17:44 APTT 35 SECONDS (21-34) H 08/14/17 17:44
[2017-08-18 16:11] VITALS: RESP 20
[2017-08-18] MEDS: Sodium Chloride 0.45% 1,000 ML IV SCH ×2 (16:19→19:42)
--- NOTE | 2017-08-18 16:41 | PN ---
DATE: LOCATION: The patient is located in room 565, bed B. REQUESTED BY: Gregorio Moulton MD and Ranjeet Claudio MD. REASON FOR FOLLOWUP: Acute renal failure, for further evaluation. SUBJECTIVE: Mrs. 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 She was not going to work over the last one month as per the patient's co-workers and the patient was found confused in the house with cocaine artifact by the daughter and she was accumulating parking tickets for not moving the car in front of the house and the patient was confused. The patient is not in acute distress. The patient still does not know the month, year, and date. She knows her date of . Denies any chest pain or palpitations. Denies any fever or cough. No abdominal pain. No nausea, vomiting, or diarrhea. PHYSICAL EXAMINATION: VITAL SIGNS: As follows: Blood pressure 148/88, pulse 68, respirations 18, temperature 97.9, saturations 99%, height 5 feet 5 inches, and the weight is 171 pounds. GENERAL: Mrs. Padron is a 66-year-old female, looks older than her age. HEENT: Pupils normal and reactive to light and accommodation. Conjunctivae pink. Sclerae anicteric. Tongue is moist. Trachea is midline. LUNGS: Symmetrical on both sides. Bilateral breath sounds present. Clear to auscultation. CVS: [place] at the fifth intercostal space, midclavicular line. S1, S2 audible. No murmur or gallop. ABDOMEN: Normal in appearance, soft, tympanic. No guarding. No rigidity. No hepatosplenomegaly. BAG CHECKER: The patient is alert, awake, and oriented x2. Sensory and motor system are within normal limits. EXTREMITIES: No cyanosis, no clubbing, no edema. The patient notes that she is in the hospital and she knows her date of breath. She does not know the month and year and day. CURRENT MEDICATIONS: Include as follows: Hydralazine 25 mg p.o. t.i.d., aspirin 81 mg daily, Rocephin 1 gm daily, losartan 50 mg p.o. daily, metformin 500 mg p.o. b.i.d, amlodipine 5 mg daily, and ibuprofen at 150 per hour. LABORATORY DATA: Includes as follows: As of 08/18/2017, WBC 4.2, hemoglobin 10.9, hematocrit is 32.1, and platelets 218. Sodium 141, potassium 3.7, chloride 106, CO2 28, BUN 19, creatinine 1.1, glucose 82, calcium 8.8, total bilirubin 0.4, AST 13, ALT 7, alkaline phosphatase 22, total protein 7, albumin 3.7. Urine culture as of 08/14/2017, multiple species, probable contamination over 10,000 colonies per unit. ASSESSMENT AND PLAN: In summary, Mrs. Padron is a 66-year-old elderly female with history of hypertension, diabetes, confusion, and urine toxicity. Positive for cocaine. The patient does not know how she has cocaine in the urine. Missing work for the last one month and accumulating parking tickets in front of the house on a car as per the patient's daughter on admission, with increased BUN and creatinine. 1. Hypertension. Blood pressure is improving. Continue her current medications Losartan, hydralazine, and amlodipine. 2. Type 2 diabetes. Continue metformin. 3. Status post acute renal failure. Renal function improved and back to normal. Continue gentle hydration. 4. Altered mental status, rule out dementia, rule out cocaine abuse. Now follow with Psych and stable from the renal standpoint. We will follow up as needed. Lolly Ferrer MD
[2017-08-19] MEDS: Sodium Chloride 0.45% 1,000 ML IV SCH (06:37)
--- NOTE | 2017-08-19 13:38 | CP.PCM.PN ---
Subjective - Date & Time of Evaluation Date of Evaluation: 08/18/17 Time of Evaluation: 12:00 - Subjective Subjective: condition same. forgetful. htn. Objective - Vital Signs/Intake and Output Vital Signs (last 24 hours): Temp Pulse Resp BP Pulse Ox 98.1 F 76 20 155/97 H 98 08/19/17 08:17 08/19/17 08:17 08/19/17 08:17 08/19/17 08:17 08/19/17 08:17 Intake and Output: 08/19/17 08/19/17 06:59 18:59 Intake Total 1300 Balance 1300 - Medications Medications: Current Medications Amlodipine Besylate (Norvasc) 5 mg PO DAILY [facility] Last Admin: 08/19/17 10:02 Dose: 5 mg Aspirin (Aspirin Chewable) 81 mg PO DAILY [facility] Last Admin: 08/19/17 10:02 Dose: 81 mg Hydralazine HCl (Apresoline) 25 mg PO TID [facility] Last Admin: 08/19/17 10:02 Dose: 25 mg Losartan Potassium (Cozaar) 50 mg PO DAILY [facility] Last Admin: 08/19/17 10:02 Dose: 50 mg Metformin HCl (Glucophage) 500 mg PO BID [facility] Last Admin: 08/19/17 10:02 Dose: 500 mg - Labs Labs: 08/18/17 08:38 08/18/17 08:38 PT 11.5 SECONDS (9.7-12.2) 08/14/17 17:44 INR 1.1 08/14/17 17:44 APTT 35 SECONDS (21-34) H 08/14/17 17:44 - Constitutional Appears: No Acute Distress, Chronically Ill - Eye Exam Eye Exam: EOMI, Normal appearance, PERRL Pupil Exam: NORMAL ACCOMODATION, PERRL - ENT Exam ENT Exam: Mucous Membranes Moist, Normal Exam - Neck Exam Neck Exam: Full ROM, Normal Inspection. absent: Lymphadenopathy - Respiratory Exam Respiratory Exam: Clear to Ausculation Bilateral, NORMAL BREATHING PATTERN - Cardiovascular Exam Cardiovascular Exam: REGULAR RHYTHM, +S1, +S2. absent: Murmur - Extremities Exam Extremities Exam: Full ROM, Normal Capillary Refill, Normal Inspection. absent : Joint Swelling, Pedal Edema - Neurological Exam Neurological Exam: Alert, Awake, CN II-XII Intact, Normal Gait, Oriented x3 - Psychiatric Exam Psychiatric exam: Normal Affect, Normal Mood Assessment and Plan - Assessment and Plan (Free Text) Assessment: ams. Plan: ct present treatment.
--- NOTE | 2017-08-19 13:40 | CP.PCM.PN ---
Subjective - Date & Time of Evaluation Date of Evaluation: 08/19/17 Time of Evaluation: 12:00 - Subjective Subjective: no change. htn. Objective - Vital Signs/Intake and Output Vital Signs (last 24 hours): Temp Pulse Resp BP Pulse Ox 98.1 F 76 20 155/97 H 98 08/19/17 08:17 08/19/17 08:17 08/19/17 08:17 08/19/17 08:17 08/19/17 08:17 Intake and Output: 08/19/17 08/19/17 06:59 18:59 Intake Total 1300 Balance 1300 - Medications Medications: Current Medications Amlodipine Besylate (Norvasc) 5 mg PO DAILY [facility] Last Admin: 08/19/17 10:02 Dose: 5 mg Aspirin (Aspirin Chewable) 81 mg PO DAILY [facility] Last Admin: 08/19/17 10:02 Dose: 81 mg Hydralazine HCl (Apresoline) 25 mg PO TID [facility] Last Admin: 08/19/17 10:02 Dose: 25 mg Losartan Potassium (Cozaar) 50 mg PO DAILY [facility] Last Admin: 08/19/17 10:02 Dose: 50 mg Metformin HCl (Glucophage) 500 mg PO BID [facility] Last Admin: 08/19/17 10:02 Dose: 500 mg - Labs Labs: 08/18/17 08:38 08/18/17 08:38 PT 11.5 SECONDS (9.7-12.2) 08/14/17 17:44 INR 1.1 08/14/17 17:44 APTT 35 SECONDS (21-34) H 08/14/17 17:44 - Constitutional Appears: Chronically Ill - Eye Exam Eye Exam: Normal appearance - ENT Exam ENT Exam: Mucous Membranes Moist - Respiratory Exam Respiratory Exam: Clear to Ausculation Bilateral, NORMAL BREATHING PATTERN - Cardiovascular Exam Cardiovascular Exam: REGULAR RHYTHM, +S1, +S2. absent: Murmur - GI/Abdominal Exam GI & Abdominal Exam: Soft, Normal Bowel Sounds. absent: Tenderness - Neurological Exam Neurological Exam: Alert, Awake, CN II-XII Intact, Normal Gait, Oriented x3 - Psychiatric Exam Psychiatric exam: Normal Affect, Normal Mood Assessment and Plan - Assessment and Plan (Free Text) Assessment: htn. crf. ams. Plan: d/c iv fluids.
--- NOTE | 2017-08-19 17:51 | CP.PCM.PN ---
Subjective - Date & Time of Evaluation Date of Evaluation: 08/19/17 Time of Evaluation: 09:00 - Subjective Subjective: afeb urine c/s mixed jose await neuro follow up may need [facility] Objective - Vital Signs/Intake and Output Vital Signs (last 24 hours): Temp Pulse Resp BP Pulse Ox 98.0 F 64 20 158/80 H 99 08/19/17 15:57 08/19/17 15:57 08/19/17 15:57 08/19/17 15:57 08/19/17 15:57 Intake and Output: 08/19/17 08/19/17 06:59 18:59 Intake Total 1300 800 Balance 1300 800 - Medications Medications: Current Medications Amlodipine Besylate (Norvasc) 5 mg PO DAILY [facility] Last Admin: 08/19/17 10:02 Dose: 5 mg Aspirin (Aspirin Chewable) 81 mg PO DAILY [facility] Last Admin: 08/19/17 10:02 Dose: 81 mg Hydralazine HCl (Apresoline) 25 mg PO TID [facility] Last Admin: 08/19/17 14:15 Dose: 25 mg Losartan Potassium (Cozaar) 50 mg PO DAILY [facility] Last Admin: 08/19/17 10:02 Dose: 50 mg Metformin HCl (Glucophage) 500 mg PO BID [facility] Last Admin: 08/19/17 10:02 Dose: 500 mg - Labs Labs: 08/18/17 08:38 08/18/17 08:38 PT 11.5 SECONDS (9.7-12.2) 08/14/17 17:44 INR 1.1 08/14/17 17:44 APTT 35 SECONDS (21-34) H 08/14/17 17:44 Assessment and Plan (1) Altered mental status Status: Acute (2) UTI (urinary tract infection) Status: Acute (3) Acute kidney injury Status: Acute (4) Diabetes Status: Acute (5) Headache Status: Acute (6) Hypertensive emergency Status: Acute (7) Leukocytosis Status: Acute
--- NOTE | 2017-08-20 21:49 | CP.PCM.PN ---
Subjective - Date & Time of Evaluation Date of Evaluation: 08/20/17 Time of Evaluation: 12:00 - Subjective Subjective: condition same. vs wnl. ams. htn. crf. Objective - Vital Signs/Intake and Output Vital Signs (last 24 hours): Temp Pulse Resp BP Pulse Ox 98 F 83 20 132/82 98 08/20/17 15:00 08/20/17 15:00 08/20/17 15:00 08/20/17 15:00 08/20/17 15:00 - Medications Medications: Current Medications Amlodipine Besylate (Norvasc) 5 mg PO DAILY [facility] Last Admin: 08/20/17 10:15 Dose: 5 mg Aspirin (Aspirin Chewable) 81 mg PO DAILY [facility] Last Admin: 08/20/17 10:14 Dose: 81 mg Hydralazine HCl (Apresoline) 25 mg PO TID [facility] Last Admin: 08/20/17 19:53 Dose: 25 mg Losartan Potassium (Cozaar) 50 mg PO DAILY [facility] Last Admin: 08/20/17 10:15 Dose: 50 mg Metformin HCl (Glucophage) 500 mg PO BID [facility] Last Admin: 08/20/17 19:53 Dose: 500 mg - Labs Labs: 08/18/17 08:38 08/18/17 08:38 PT 11.5 SECONDS (9.7-12.2) 08/14/17 17:44 INR 1.1 08/14/17 17:44 APTT 35 SECONDS (21-34) H 08/14/17 17:44 - Constitutional Appears: Chronically Ill - Eye Exam Eye Exam: EOMI, Normal appearance, PERRL Pupil Exam: NORMAL ACCOMODATION, PERRL - ENT Exam ENT Exam: Mucous Membranes Moist, Normal Exam - Neck Exam Neck Exam: Full ROM, Normal Inspection. absent: Lymphadenopathy - Respiratory Exam Respiratory Exam: Clear to Ausculation Bilateral, NORMAL BREATHING PATTERN - Cardiovascular Exam Cardiovascular Exam: REGULAR RHYTHM, +S1, +S2. absent: Murmur - GI/Abdominal Exam GI & Abdominal Exam: Soft, Normal Bowel Sounds. absent: Tenderness - Neurological Exam Neurological Exam: Alert, Awake, CN II-XII Intact, Normal Gait, Oriented x3 - Psychiatric Exam Psychiatric exam: Normal Affect, Normal Mood Assessment and Plan - Assessment and Plan (Free Text) Assessment: same Plan: ct present treatment. for possible gautam.
--- NOTE | 2017-08-21 07:42 | EEG ---
DATE: INTRODUCTION: This is a digitally recorded EEG monitoring using standard EEG montages. BACKGROUND RHYTHM: The EEG shows a background activity of 8-9 Hz alpha activity in parietooccipital region. The EEG activity is bilaterally symmetrical and synchronous. There is attenuation of the background activity on eye opening. Drowsiness was noted by slowing of the background activity. No sleep recording was noted. ABNORMAL POTENTIALS: No spike, sharp waves, or focal slowing was seen. PHOTIC STIMULATION AND HYPERVENTILATION: Photic stimulation did not reveal any abnormality. Hyperventilation was not performed. IMPRESSION: Normal electroencephalogram. No epileptiform activity is seen in this EEG recording. Singh Parra MD
--- NOTE | 2017-08-21 12:17 | CP.PCM.PN ---
Subjective - Date & Time of Evaluation Date of Evaluation: 08/21/17 Time of Evaluation: 12:14 - Subjective Subjective: CONDITION SAME. AWAKE. ORIENTED. Objective - Vital Signs/Intake and Output Vital Signs (last 24 hours): Temp Pulse Resp BP Pulse Ox 98.0 F 69 20 124/76 99 08/21/17 07:00 08/21/17 07:00 08/21/17 07:00 08/21/17 07:00 08/21/17 07:00 Intake and Output: 08/21/17 08/21/17 06:59 18:59 Intake Total 0 Balance 0 - Medications Medications: Current Medications Amlodipine Besylate (Norvasc) 5 mg PO DAILY [facility] Last Admin: 08/21/17 09:42 Dose: 5 mg Aspirin (Aspirin Chewable) 81 mg PO DAILY [facility] Last Admin: 08/21/17 09:42 Dose: 81 mg Hydralazine HCl (Apresoline) 25 mg PO TID [facility] Last Admin: 08/21/17 09:42 Dose: 25 mg Losartan Potassium (Cozaar) 50 mg PO DAILY [facility] Last Admin: 08/21/17 09:42 Dose: 50 mg Metformin HCl (Glucophage) 500 mg PO BID [facility] Last Admin: 08/21/17 09:42 Dose: 500 mg - Labs Labs: 08/18/17 08:38 08/18/17 08:38 PT 11.5 SECONDS (9.7-12.2) 08/14/17 17:44 INR 1.1 08/14/17 17:44 APTT 35 SECONDS (21-34) H 08/14/17 17:44 - Constitutional Appears: Chronically Ill - Head Exam Head Exam: ATRAUMATIC, NORMAL INSPECTION, NORMOCEPHALIC - Eye Exam Eye Exam: EOMI, Normal appearance, PERRL Pupil Exam: NORMAL ACCOMODATION, PERRL - ENT Exam ENT Exam: Mucous Membranes Moist, Normal Exam - Neck Exam Neck Exam: Full ROM, Normal Inspection. absent: Lymphadenopathy - Respiratory Exam Respiratory Exam: Clear to Ausculation Bilateral, NORMAL BREATHING PATTERN - Cardiovascular Exam Cardiovascular Exam: REGULAR RHYTHM, +S1, +S2. absent: Murmur - Extremities Exam Extremities Exam: Full ROM, Normal Capillary Refill, Normal Inspection. absent : Joint Swelling, Pedal Edema - Neurological Exam Neurological Exam: Alert, Awake, CN II-XII Intact, Normal Gait, Oriented x3 - Psychiatric Exam Psychiatric exam: Normal Affect, Normal Mood Assessment and Plan - Assessment and Plan (Free Text) Assessment: AMS. Plan: DISCHARGE HOME. F/U WITH DR. BIRD. PSYCH CLEARED FOR DISCHARGE.
--- NOTE | 2017-08-21 15:05 | CP.PCM.PN ---
Subjective - Date & Time of Evaluation Date of Evaluation: 08/21/17 Time of Evaluation: 15:05 - Subjective Subjective: PATIENT WAS ADMITTED FOR AMS AAOX3/ DENIES CHEST PAIN NO SIGN OF DISTRESS NOTED Objective - Vital Signs/Intake and Output Vital Signs (last 24 hours): Temp Pulse Resp BP Pulse Ox 98.0 F 69 20 124/76 99 08/21/17 07:00 08/21/17 07:00 08/21/17 07:00 08/21/17 07:00 08/21/17 07:00 Intake and Output: 08/21/17 08/21/17 06:59 18:59 Intake Total 0 Balance 0 - Medications Medications: Current Medications Amlodipine Besylate (Norvasc) 5 mg PO DAILY [facility] Last Admin: 08/21/17 09:42 Dose: 5 mg Aspirin (Aspirin Chewable) 81 mg PO DAILY [facility] Last Admin: 08/21/17 09:42 Dose: 81 mg Hydralazine HCl (Apresoline) 25 mg PO TID [facility] Last Admin: 08/21/17 14:21 Dose: 25 mg Losartan Potassium (Cozaar) 50 mg PO DAILY [facility] Last Admin: 08/21/17 09:42 Dose: 50 mg Metformin HCl (Glucophage) 500 mg PO BID [facility] Last Admin: 08/21/17 09:42 Dose: 500 mg - Labs Labs: 08/18/17 08:38 08/18/17 08:38 PT 11.5 SECONDS (9.7-12.2) 08/14/17 17:44 INR 1.1 08/14/17 17:44 APTT 35 SECONDS (21-34) H 08/14/17 17:44 Assessment and Plan - Assessment and Plan (Free Text) Assessment: PATIENT SEEN AND EXAMINED LUNG SOUND CLEAR VITAL SIGN IS STABLE DISCUSS WITH DR GLASGOW WHO CLEAR PATIENT FOR DC FOLLOW UP WITH DR Doug BARTON IN HIS OFFICE IN 1-2 WEEK ---CALL FOR APPOINTMENT CONTINUE YOUR MEDICATION STOP THE COREG AND CLONIDINE NEW PRESCRIPTION GIVEN HYDRALAZINE 25 MG BY MOUTH THREE TIME A DAY ACTIVITY TOLERATED CALL DR Doug BARTON OR GO TO THE EMERGENCY ROOM IF SYMPTOMS RETURN OR WORSENING DISCUSS WITH PATIENT AND PATIENT'S DAUGHTER WHO AGREE AND VERBALIZED UNDERSTANDING
[2017-08-21 15:48] VITALS: BP 144/86; PULSE 91; TEMP 98.2; O2SAT 95
--- NOTE | 2017-08-24 04:16 | DS ---
HISTORY OF PRESENT ILLNESS: This is a 66-year-old black female who was referred to the emergency room by Dr. Claudio. The patient found her having memory loss and altered mental status. The patient denied having any further complaints. The family noted cocaine stuff around. The patient was missing to go to the job and forgetful. PAST HISTORY: History of hypertension, arthritis, diabetes, and TIA. HOSPITAL COURSE: On admission, physical examination was within normal limit. The patient was with altered mental status and forgetful. During the hospital course, the patient was observed. The patient improved. The patient's blood pressure remained high, so it was controlled by medications. The patient was stabilized. The patient was discharged home with home health care and continue all medications. FINAL DIAGNOSES: 1. Altered mental status. 2. Rule out urinary tract infection. 3. Substance abuse. 4. Mild dementia. Gregorio Moulton MD
== END 2017-08-21 17:35 | disposition home or self-care (01) | DRG 949 ==
LOC: C.ER 15:46 → C.9E 18:44 → EEVIPCON 18:44 → C.5S 18:44
PROVIDERS: ADMIT Internal Medicine Nephrology; ATTEND Internal Medicine
DX: Z79.84 Long term (current) use of oral hypoglycemic drugs (principal); N17.9 Acute kidney failure, unspecified; I16.1 Hypertensive emergency; N39.0 Urinary tract infection, site not specified; R41.82 Altered mental status, unspecified; F14.10 Cocaine abuse, uncomplicated; F03.90 Unspecified dementia, unspecified severity, without behavioral disturbance, psychotic disturbance, mood disturbance, and anxiety; I12.9 Hypertensive chronic kidney disease with stage 1 through stage 4 chronic kidney disease, or unspecified chronic kidney disease; N18.9 Chronic kidney disease, unspecified; E87.5 Hyperkalemia; E86.9 Volume depletion, unspecified; E11.22 Type 2 diabetes mellitus with diabetic chronic kidney disease; Z96.652 Presence of left artificial knee joint; Z86.73 Personal history of transient ischemic attack (TIA), and cerebral infarction without residual deficits; Z90.710 Acquired absence of both cervix and uterus